=== PATIENT | female | born 1975 | race Caucasian/White ===

== ENCOUNTER 2024-07-29 01:44 | Emergency (ER) | payer OTHER, SELFPAY ==
[2024-07-29 02:05] VITALS: BP 172/108; PULSE 92; TEMP 37; O2SAT 96; BMI 35.3
--- NOTE | 2024-07-29 02:18 | XR_ITS ---
The [address] [address] Patient Name: DEJUAN REYES MRN: [id number] date: 1975 Sex: F Assigned Patient Location: ER Current Patient Location: ED.MAIN Accession/Order Number: [id number] Exam Date: 07/29/2024 02:56 Report Date: 07/29/2024 04:15 At the request of: SHAGGY SPEARS Procedure: XR foot RT min 3V PROCEDURE: XR foot RT min 3V, XR ankle RT min 3V HISTORY: twisted COMPARISON: None. FINDINGS: BONES:Subtle cortical irregularity of lateral malleolus and questionable curvilinear lucency traversing the lateral malleolus suggestive of fracture. Normal articular surfaces and uniform spacing of the ankle joint. Unremarkable foot. SOFT TISSUES:Soft tissue swelling surrounding the ankle. EFFUSION:None visible. OTHER: Negative. XR/XR foot RT min 3V IMPRESSION: 1. Subtle irregularity of the lateral malleolus; nondisplaced fracture versus incomplete ossification of prior growth plate. Nondisplaced fracture is suspected. Electronically authenticated by: KIEL GARCIA Date: 07/29/2024 04:15
--- NOTE | 2024-07-29 02:18 | XR_ITS ---
The [address] [address] Patient Name: DEJUAN REYES MRN: [id number] date: 1975 Sex: F Assigned Patient Location: ER Current Patient Location: ED.MAIN Accession/Order Number: [id number] Exam Date: 07/29/2024 02:56 Report Date: 07/29/2024 04:15 At the request of: SHAGGY SPEARS Procedure: XR ankle RT min 3V PROCEDURE: XR foot RT min 3V, XR ankle RT min 3V HISTORY: twisted COMPARISON: None. FINDINGS: BONES:Subtle cortical irregularity of lateral malleolus and questionable curvilinear lucency traversing the lateral malleolus suggestive of fracture. Normal articular surfaces and uniform spacing of the ankle joint. Unremarkable foot. SOFT TISSUES:Soft tissue swelling surrounding the ankle. EFFUSION:None visible. OTHER: Negative. XR/XR ankle RT min 3V IMPRESSION: 1. Subtle irregularity of the lateral malleolus; nondisplaced fracture versus incomplete ossification of prior growth plate. Nondisplaced fracture is suspected. Electronically authenticated by: KIEL GARCIA Date: 07/29/2024 04:15
--- NOTE | 2024-07-29 02:21 | ED_ITS ---
HPI HPI - Extremity Injury (Lower) General Chief Complaint: Extremity Injury, Lower Stated Complaint: LE INJURY Time Seen by Provider: 07/29/24 02:19 Source: patient Mode of arrival: Wheelchair Limitations: no limitations History of Present Illness HPI Narrative: walking to bath room and twist her right ankle. states she fell down slow motion . Denies other injury. Here because of the ankle injury. Did not hit her head Related Data Home Medications ?Medication ?Instructions ?Recorded ?Confirmed carvedilol 12.5 mg tablet 12.5 mg PO Q12H 07/29/24 07/29/24 cetirizine 10 mg tablet (24Hour 10 mg PO DAILY 07/29/24 07/29/24 Allergy) ergocalciferol (vitamin D2) 1,250 1,250 mcg PO .WEEKLY 07/29/24 07/29/24 mcg (50,000 unit) capsule fluticasone propionate 50 1 spray intranasal DAILY 07/29/24 07/29/24 mcg/actuation nasal spray,suspension lisinopril 20 mg tablet mg 07/29/24 lisinopril 40 mg tablet 40 mg PO DAILY 07/29/24 07/29/24 meloxicam 15 mg tablet 15 mg PO DAILY 07/29/24 07/29/24 rosuvastatin 10 mg tablet 10 mg PO DAILY 07/29/24 07/29/24 Allergies Allergy/AdvReac Type Severity Reaction Status Date / Time ciprofloxacin [From Cipro] AdvReac Nausea Verified 07/29/24 02:10 Opioid HPI Opioid Management Most Recent Pain and Opioid Data: Last Pain Scale 7 07/29/24 02:23 Last ED Pain Assessment 07/29/24 02:23 Review of Systems ROS Status of ROS 10 or more systems reviewed and unremark able except as noted in history and below PFSH PFSH Social History Little interest or pleasure in doing things: not at all Feeling down, depressed, or hopeless: not at all Exam Constitutional Vital Signs, click to edit/add: Last Vital Signs Temp 98.6 F 07/29/24 02:05 Pulse 92 H 07/29/24 02:05 Resp 16 07/29/24 02:05 BP 172/108 H 07/29/24 02:05 Pulse Ox 96 07/29/24 02:05 O2 Del Method Room Air 07/29/24 02:05 Common normals: no apparent distress, average body habitus, oriented x3, no limitations, healthy appearing, alert and well nourished Eye Common normals: PERRL and EOMs intact bilaterally Respiratory Common normals: normal respiratory effort, no retractions, no use of accessory muscles and clear to auscultation bilaterally Cardio Common normals: regular rate, regular rhythm, S1 normal heart sound and S2 normal heart sound Extremity Other: mild swelling right lateral malleolus Neuro Common normals: oriented x3, CN's II-XII intact bilaterally, moves all extremities and no focal motor deficits Psych Appearance: grossly normal Course Vital Signs Vital signs: Vital Signs Temperature 98.6 F 07/29/24 02:05 Pulse Rate 92 H 07/29/24 02:05 Respiratory Rate 16 07/29/24 02:05 Blood Pressure 172/108 H 07/29/24 02:05 Pulse Oximetry 96 07/29/24 02:05 Oxygen Delivery Method Room Air 07/29/24 02:05 Temperature 98.6 F 07/29/24 02:05 Pulse Rate 92 H 07/29/24 02:05 Respiratory Rate 16 07/29/24 02:05 Blood Pressure 172/108 H 07/29/24 02:05 Pulse Oximetry 96 07/29/24 02:05 Oxygen Delivery Method Room Air 07/29/24 02:05 MDM - Extremity Injury (Lower) MDM Narrative Medical decision making narrative: patient presents after fall injury. twisted ankle walking to bathroom. xray with nondisplaced fracture. Patient placed in a splint and discharged home to follow up with orthopedics. she has crutches in her car and knows an orthopedic physician she can followup with Discharge Plan Discharge Chief Complaint: Extremity Injury, Lower Clinical Impression: Ankle fracture Patient Disposition: Home, Self-Care Prescriptions / Home Meds: No Action carvedilol 12.5 mg tablet 12.5 mg PO Q12H ergocalciferol (vitamin D2) 1,250 mcg (50,000 unit) capsule 1,250 mcg PO .WEEKLY fluticasone propionate 50 mcg/actuation spray,suspension 1 spray INTRANASAL DAILY lisinopril 20 mg tablet lisinopril 40 mg tablet 40 mg PO DAILY meloxicam 15 mg tablet 15 mg PO DAILY rosuvastatin 10 mg tablet 10 mg PO DAILY cetirizine [24Hour Allergy] 10 mg tablet 10 mg PO DAILY Print Language: Salvadorean Instructions: Ankle Fracture (ED), Crutch Instructions (ED) Additional Instructions: follow up with orthopedics next week Referrals: Physician,Non-Staff, MD [Primary Care Provider] - 1 week Procedures ED Procedure Instructions Procedures Procedures: right ankle fracture. fiber glass material used to form a posterior ankle splint secured in place with jaren bandage. N/V post procedure WNL
[2024-07-29 04:31] VITALS: BP 148/72; PULSE 69; O2SAT 99
== END 2024-07-29 04:32 | disposition home or self-care (01) ==
PROVIDERS: Emergency Provider Internal Medicine
DX: S82.891A Other fracture of right lower leg, initial encounter for closed fracture (principal); X50.1XXA Overexertion from prolonged static or awkward postures, initial encounter
CPT/HCPCS: 29515; 73610; 73630; 99283

== ENCOUNTER 2024-12-10 22:07 | Emergency (ER) | payer OTHER, SELFPAY ==
[2024-12-10 22:10] VITALS: BP 175/104; PULSE 89; TEMP 36.6; O2SAT 95; BMI 36.6
--- OUTSIDE RECORDS SUMMARY | 2024-12-10 22:12 | XMS_ITS | CCD ---
Author Organization [facility] Care Team Providers Care Work Car Operator Name Role Phone RAJ, DR KELLEY Admitting Unavailable RAJ, DR KELLEY Attending Unavailable SIRI, DR WOOD Primary Care Unavailable RAJ, DR KELLEY Consulting Unavailable SIRI, DR WOOD Primary Care Unavailable DIANA, DR NOEMÍ Vazquez Admitting Unavailable DIANA, DR NOEMÍ Vazquez Attending Unavailable DIANA, DR NOEMÍ Vazquez Consulting Unavailable HAY, DR APPLE Consulting Unavailable AHLAM, BOYD Consulting Unavailable YOLANDA, DANICA Consulting Unavailable MAO, WESLY Consulting Unavailable Sabiha Horner MD Primary Care Provider Javan RIOS, Tori Unavailable Javan RIOS, Tori Unavailable MIRIAM PAULINO I Attending Unavailable TORI EDOUARD Referring Unavailable SABIHA HORNER Primary Care Unavailable JAYCEE VEGAS Attending Unavailable SABIHA HORNER Referring Unavailable SABIHA HORNER Primary Care Unavailable MIRIAM PAULINO I Referring Unavailable SABIHA HORNER Primary Care Unavailable SABIHA HORNER Referring Unavailable SABIHA HORNER Primary Care Unavailable JAYCEE VEGAS Admitting Unavailable JAYCEE VEGAS Attending Unavailable SABIHA HORNER Primary Care Unavailable JAYCEE VEGAS Attending Unavailable JAYCEE VEGAS Referring Unavailable SABIHA HORNER Primary Care Unavailable JAYCEE VEGAS Attending Unavailable JAYCEE VEGAS Referring Unavailable SABIHA HORNER Primary Care Unavailable Sabiha Horner MD Unavailable Johnnie Vyas LPN Unavailable Chemo Severino DO Unavailable TORI EDOUARD Attending Unavailable CHEMO SEVERINO Attending Unavailable CHEMO SEVERINO Referring Unavailable BANDAR, ALEKS Sagastume Attending Unavailab le KAMRONN, TORI Attending Unavailable KAMPFER, TORI Attending Unavailable KAMPFER, TORI Attending Unavailable KAMPFER, TORI Referring Unavailable APLING, KACEY B Attending Unavailable APLING, KACEY B Attending Unavailable APLING, KACEY B Referring Unavailable APLING, KACEY B Attending Unavailable APLING, KACEY B Attending Unavailable APLING, KACEY B Referring Unavailable APLING, KACEY B Attending Unavailable APLING, KACEY B Referring Unavailable APLING, KACEY B Attending Unavailable BLACKSTON, ASHTYN T Attending Unavailable APLING, KACEY B Referring Unavailable PATRICIA, RICCARDO Attending Unavailable APLING, KACEY B Referring Unavailable PATRICIA, RICCARDO Attending Unavailable APLING, KACEY B Referring Unavailable PATRICIA, RICCARDO Attending Unavailable APLING, KACEY B Referring Unavailable PATRICIA, RICCARDO Attending Unavailable APLING, KACEY B Referring Unavailable PATRICIA, RICCARDO Attending Unavailable APLING, KACEY B Referring Unavailable PATRICIA, RICCARDO Attending Unavailable APLING, KACEY B Referring Unavailable PATRICIA, RICCARDO Attending Unavailable APLING, KACEY B Referring Unavailable PATRICIA, RICCARDO Attending Unavailable APLING, KACEY B Referring Unavailable PATRICIA, RICCARDO Attending Unavailable APLING, KACEY B Referring Unavailable APLING, KACEY B Attending Unavailable BLACKSTON, ASHTYN T Attending Unavailable APLING, KACEY B Referring Unavailable Allergies Allergy Classification Reported Allergen(s) Allergy Type Date of Onset Reaction(s) Facility (1 source) Ciprofloxacin Drug Allergy [facility] Repository (20 sources) Ciprofloxacin; Translations: [CIPROFLOXACIN] Drug Allergy 11-06-2021 [facility] Work Phone: Medications Current Medications Medication Drug Class(es) Dates Sig (Normalized) Sig (Original) busPIRone hydrochloride 10 mg oral tablet (8 sources) Start: 09-12-2023 End: 03-10-2024 take 1 tablet by mouth in the morning busPIRone (Buspar) 10 MG tablet Indications: Anxiety Take 1 tablet (10 mg) by mouth in the morning and 1 tablet (10 mg) before bedtime. 180 tablet 1 09/12/2023 03/10/2024 Active carvedilol 12.5 mg oral tablet (20 sources) alpha-Adrenergic Angelique, beta-Adrenergic Angelique Start: 07-30-2024 take 1 tablet by mouth in the morning carvedilol (Coreg) 12.5 MG tablet Indications: Primary hypertension (CMS/HCC) Take 1 tablet (12.5 mg) by mouth in the morning and 1 tablet (12.5 mg) in the evening. Take with meals. 180 tablet 1 07/30/2024 Active Start: 04-10-2024 End: 07-27-2024 take 1 tablet by mouth in the morning carvedilol (Coreg) 12.5 MG tablet Indications: Primary hypertension (CMS/HCC) take 1 tablet by mouth IN THE MORNING and take 1 tablet IN THE EVENING with meals 180 tablet 1 04/10/2024 07/27/2024 Discontinued (Reorder) ergocalciferol 1.25 mg oral capsule (20 sources) Provitamin D2 Compound Start: 08-03-2024 End: 11-01-2025 take 1 capsule by mouth every week ergocalciferol (Vitamin D2) 1.25 MG (49927 UT) capsule Indications: Vitamin D deficiency Take 1 capsule (1.25 mg) by mouth 1 (one) time per week 12 capsule 1 11/01/2024 11/01/2025 Active fluticasone propionate 0.05 mg/actuat metered dose nasal spray (20 sources) Corticosteroid Start: 07-28-2024 End: 01-24-2025 take 1 spray(s) nasal route once daily fluticasone (Flonase) 50 MCG/ACT nasal spray Indications: Allergic rhinitis, unspecified seasonality, unspecified trigger Administer 1 spray into each nostril Daily 48 g 1 07/28/2024 01/24/2025 Active Start: 11-15-2023 End: 05-13-2024 take 1 spray(s) nasal route in the morning fluticasone (Flonase) 50 MCG/ACT nasal spray Indications: Allergic rhinitis, unspecified seasonality, unspecified trigger Administer 1 spray into each nostril in the morning. 48 g 1 11/15/2023 Active hydrOXYzine hydrochloride 25 mg oral tablet (11 sources) Antihistamine Start: 05-29-2024 take 1 tablet by mouth once hydrOXYzine HCl (Atarax) 25 MG tablet Indications: Anxiety Take 1 tablet (25 mg) by mouth every 12 (twelve) hours if needed for anxiety 60 tablet 05/29/2024 Active Start: 11-15-2023 take 1 tablet by mouth once hy drOXYzine HCl (Atarax) 25 MG tablet Indications: Anxiety Take 1 tablet (25 mg) by mouth every 12 (twelve) hours if needed for anxiety 60 tablet 0 11/15/2023 Active lisinopril 40 mg oral tablet (20 sources) Angiotensin Converting Enzyme Inhibitor Start: 07-30-2024 take 1 tablet by mouth in the morning lisinopril 40 MG tablet Indications: Hypertension, unspecified type (CMS/HCC) Take 1 tablet (40 mg) by mouth in the morning. 100 tablet 1 07/30/2024 Active Start: 01-05-2024 End: 07-27-2024 take 1 tablet by mouth in the morning lisinopril 40 MG tablet Indications: Hypertension, unspecified type (CMS/HCC) Take 1 tablet (40 mg) by mouth in the morning. 100 tablet 1 02/01/2024 07/27/2024 Discontinued (Reorder) Start: 01-04-2024 End: 01-06-2024 take 1.5 tablets by mouth in the morning lisinopril 20 MG tablet Indications: Hypertension, unspecified type (CMS/HCC) Take 1.5 tablets (30 mg) by mouth in the morning for 2 days. 3 tablet 0 01/04/2024 01/05/2024 Discontinued Start: 08-22-2023 End: 01-04-2024 take 1 tablet by mouth once daily in the morning lisinopril 20 MG tablet Indications: Hypertension, unspecified type (CMS/HCC) take 1 tablet by mouth every morning 90 tablet 1 08/22/2023 01/04/2024 Discontinued (Reorder) loratadine 10 mg oral tablet (20 sources) take 1 tablet by mouth in the morning loratadine (Claritin) 10 MG tablet Take 10 mg by mouth in the morning. Active meloxicam 15 mg oral tablet (20 sources) Nonsteroidal Anti-inflammatory Drug Start: take 1 tablet by mouth once daily meloxicam (Mobic) 15 MG tablet Indications: Other chronic pain Take 1 tablet (15 mg) by mouth Daily 90 tablet 1 07/13/2024 Active Start: 09-30-2023 End: 12-29-2023 take 1 tablet by mouth at mealtime Meloxicam 15 MG tablet dispersible Indications: Other chronic pain Take 1 tablet by mouth in the morning. Take with meals. 90 tablet 0 09/30/2023 12/29/2023 methylPREDNISolone (6 sources) Corticosteroid Start: 12-28-2023 End: 01-05-2024 methylPREDNISolone (Medrol Dospak) 4 MG tablets Indications: Capsulitis of hand As directed 21 tablet 0 12/28/2023 01/05/2024 Discontinued (Therapy completed) Start: 12-28-2023 methylPREDNISo lone (Medrol Dospak) 4 MG tablets Indications: Capsulitis of hand As directed 21 tablet 0 12/28/2023 Active metoprolol tartrate 25 mg oral tablet (8 sources) beta-Adrenergic Angelique Start: 11-15-2023 End: 11-14-2024 take 1 tablet by mouth in the morning metoprolol tartrate (Lopressor) 25 MG tablet Indications: Hypertension, unspecified type (CMS/HCC) Take 1 tablet (25 mg) by mouth in the morning and 1 tablet (25 mg) before bedtime. 200 tablet 0 11/15/2023 11/14/2024 Active rosuvastatin calcium 10 mg oral tablet (20 sources) HMG-CoA Reductase Inhibitor Start: 07-30-2024 take 1 tablet by mouth in the morning rosuvastatin (Crestor) 10 MG tablet Indications: Mixed hyperlipidemia (CMS/HCC) , ASCVD (arteriosclerotic cardiovascular disease) (CMS/HCC) Take 1 tablet (10 mg) by mouth in the morning. 90 tablet 1 07/30/2024 Active Start: 06-14-2024 End: 07-27-2024 take 1 tablet by mouth once daily in the morning rosuvastatin (Crestor) 10 MG tablet Indications: Mixed hyperlipidemia (CMS/HCC) , ASCVD (arteriosclerotic cardiovascular disease) (CMS/HCC) take 1 tablet by mouth every morning 90 tablet 1 06/14/2024 07/27/2024 Discontinued (Reorder) Start: 12-21-2023 take 1 tablet by malick th once daily in the morning rosuvastatin (Crestor) 10 MG tablet Indications: Mixed hyperlipidemia (CMS/HCC) , ASCVD (arteriosclerotic cardiovascular disease) (CMS/HCC) take 1 tablet by mouth every morning 90 tablet 1 12/21/2023 Active Problems Active Problems Problem Classification Problem Date Documented Da te Episodic/Chronic Abdominal pain (2 sources) Unspecified abdominal pain; Translations: [Unspecified abdominal pain] Onset: 07-11-2024 Episodic Anxiety disorders (20 sources) Anxiety; Translations: [Anxiety disorder, unspecified] Onset: 05-23-2023 05-23-2023 Chronic Coronary atherosclerosis and other heart disease (20 sources) Preinfarction syndrome; Translations: [Unstable angina] Onset: 11-26-2022 05-23-2023 Chronic Disorders of lipid metabolism (20 sources) Hyperlipidemia; Translations: [Hyperlipidemia, unspecified] Onset: 05-23-2023 05-23-2023 Chronic Essential hypertension (20 sources) Essential hypertension; Translations: [Essential (primary) hypertension] Onset: 05-23-2023 12-21-2023 Chronic Fracture of lower limb (20 sources) Closed fracture of lateral malleolus; Translations: [Nondisplaced fracture of lateral malleolus of right fibula, subsequent encounter for closed fracture with routine healing] 09-04-2024 Episodic Genitourinary symptoms and ill-defined conditions (2 sources) Dysuria; Translations: [Dysuria] 12-21-2023 Episodic Nutritional deficiencies (1 source) Vitamin D deficiency; Translations: [Vitamin D deficiency, unspecified] 08-03-2024 Chronic Other connective tissue disease (2 sources) Pain in right hand; Translations: [Pain in right hand] 12-28-2023 Episodic Other connective tissue disease (2 sources) Capsulitis; Translations: [Other enthesopathies, not elsewhere classified] 12-28-2023 Episodic Other nervous system disorders (20 sources) Chronic pain; Translations: [Other chronic pain] Onset: 05-23-2023 05-23-2023 Chronic Other nutritional; endocrine; and metabolic disorders (1 source) Other disorders of glycoprotein metabolism; 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] Onset: 10-12-2021 Chronic Other nutritional; endocrine; and metabolic disorders (1 source) Hypocalcemia; Translations: [HYPOCALCEMIA] Onset: 10-12-2021 Chronic Other nutritional; endocrine; and metabolic disorders (20 sources) Body mass index 30+ - obesity; Translations: [Obesity, unspecified] Onset: 05-23-2023 05-23-2023 Chronic Pneumonia (except that caused by tuberculosis or sexually transmitted disease) (1 source) Pneumonia (except that caused by tuberculosis or sexually transmitted disease); Translations: [PNEUMONIA D/T CORONAVIRUS DIS 2019] Onset: 10-12-2021 Residual codes; unclassified (4 sources) Obstructive sleep apnea (adult) (pediatric); Translations: [OBSTRUCTIVE SLEEP APNEA] Onset: 09-28-2022 Chronic Residual codes; unclassified (20 sources) Obstructive sleep apnea syndrome; Translations: [Obstructive sleep apnea (adult) (pediatric)] Onset: 05-23-2023 05-23-2023 Chronic Respiratory failure; insufficiency; arrest (adult) (1 source) Dependence on supplemental oxygen; Translations: [DEPENDENCE ON SUPPLEMENTAL OXYGEN] Onset: 10-12-2021 Chronic Sprains and strains (8 sources) Sprain of right ankle; Translations: [Sprain of unspecified ligament of right ankle, subsequent encounter] 09-04-2024 Episodic Urinary tract infections (1 source) Urinary tract infections Onset: 06-06-2024 Viral infection (3 sources) COVID-19; Translations: [COVID-19] Onset: 10-04-2021 Past or Other Problems Problem Classification Problem Date Documented Da te Episodic/Chronic Calculus of urinary tract (20 sources) Kidney stone; Translations: [Calculus of kidney] Onset: 05-23-2023 05-23-2023 Episodic Mood disorders (20 sources) Mood disorders Onset: 09-26-2023 09-26-2023 Other aftercare (1 source) terminal gauger (current) use of aspirin; Translations: [GROUP HOME CURRENT USE OF ASPIRIN] Onset: 10-12-2021 Episodic Other gastrointestinal disorders (1 source) Diarrhea, unspecified; Translations: [DIARRHEA UNSPECIFIED] Onset: 10-12-2021 Episodic Other lower respiratory disease (1 source) Hypoxemia; Translations: [HYPOXEMIA] Onset: 10-12-2021 Episodic Other non-traumatic joint disorders (2 sources) Ankle pain; Translations: [Pain in right ankle and joints of right foot] 07-30-2024 Episodic Other screening for suspected conditions (not mental disorders or infectious disease) (20 sources) Other specified abnormal findings of blood chemistry; Translations: [Mammography abnormal] Onset: 10-12-2021 05-23-2023 Episodic Urinary tract infections (3 sources) Urinary tract infection, site not specified; Translations: [Acute cystitis with hematuria] Onset: 04-18-2024 Episodic Results Test Name Value Interpretation Reference Range Facility XR Ankle - right 3 View[facility] 1 12-11-2023 Imaging Result: Xrays AP, LAT and OBL of the right ankle performed on October 10, 2024 demonstrates demonstrates a symmetric ankle mortise. There is callus formation and filling in of the bone of the lateral malleolus. Impression Healing non displaced lateral malleolus fracture Kacey Johns TEXT[employer] SUPERVISOR [facility] [place] XR Ankle - right 3 ViewsOrde red By: Aman Escobar on 10-11-2024 [employer] Work Phone: XR Ankle - right 3 [facility] 1 12-10-2023 Radiology Study observation (narrative) [facility] [place] XR Ankle - right 3 Viewson 1 Imaging Result: Xrays AP, LAT and OBL of the right ankle performed on September 12, 2024 demonstrates a symmetric ankle mortise. There is callus formation and filling in of the bone of the lateral malleolus. Impression Healing non displaced lateral malleolus fracture [facility] [place] XR Ankle - right 3 ViewsOrde red By: Aman Escobar on 09-15-2024 [employer] Work Phone: XR Ankle - right 3 Viewson 1 Radiology Study observation (narrative) [facility] [place] XR Ankle - right 3 View[facility] 0 08-15-2024 Imaging Result: August 15, 2024 x-rays AP lateral and mortise of the right ankle demonstrate a symmetric ankle mortise. There appears to be a healed fracture of the lateral malleolus which was nondisplaced and has a subacute appearance. Impression: Stable appearance of right ankle with evidence of old healed lateral malleolus ankle fracture Kishore Escobar D.O. [facility] [place] Radiology Study observation (narrative) [facility] [place] XR Ankle - right 3 ViewsOrde red By: Aman Escobar on 08-15-2024 [employer] Work Phone: CT UROGRAMon 07-26-[address] UROGRAM STUDY: CT abdomen and pelvis with and without contrast (CT Urogram) CLINICAL HISTORY: Flank pain stone suspected COMPARISON: 02/15/2008 TECHNIQUE: CT of the abdomen and pelvis (CT urogram) was performed prior to and following the uneventful ministration of 125 cc Omnipaque 350 nonionic intravenous contrast utilizing thin section axial imaging with multiphasic contrast injection. Coronal and sagittal reformatted images were generated. Volume rendered 3 -D Maximum intensity projection reconstructions constructed under concurrent physician supervision on a independent workstation and reviewed for purposes of evaluation of the urinary tract and collecting systems. FINDINGS: The lung bases are clear. The liver, spleen, kidneys, adrenal glands, and pancreas are unremarkable. The gallbladder is unremarkable. There are no renal stones or hydronephrosis. There is no renal mass. There is no collecting system or ureter duplication. The ureters follow the usual course to the bladder. The bladder is unremarkable. There is no pelvic mass or free fluid. The gallbladder is unremarkable. Bowel loops are grossly unremarkable. The appendix is normal. There is no hernia. There is disc space narrowing and endplate degenerative change at L5-S1. The visualized lower thoracic and lumbar spine are otherwise unremarkable. IMPRESSION: 1. No renal stones or hydronephrosis. All CT scans at this facility use dose modulation, iterative reconstruction, and/or weight based dosing when appropriate to reduce radiation dose to as low as reasonably achievable. All CT scans at this facility use dose modulation, iterative reconstruction, and/or weight based dosing when appropriate to reduce radiation dose to as low as reasonably achievable. Finalized by Jamar Manrique MD on 07/26/2024 8:21 AM Normal [facility] URINE CULTUREon 06-06-2024 Bacteria identified Cx Nom (U) CULTURE RESULTS 10-50,000 ORGANISMS/mL NORMAL UROGENITAL CHEN Normal [facility] Comment on above: Performed By: #### 6 30-4 #### [facility] ([id number]) [address], [address] [place] [address] [facility] US LOWER EXTREMITY VENO US DUPLEX BILATERALon 04-30-2024 [facility] US LOWER EXTREMITY VENOUS DUPLEX BILATERAL FINDINGS: The deep venous system of both lower extremities exhibits full compressibility and normal flow augmentation. These specifically include the common femoral, superficial femoral, and popliteal veins. No evidence of deep venous thrombosis is present. No cystic or soft tissue mass in the popliteal fossa. IMPRESSION: Normal venous sonogram. No deep venous thrombosis. TRANSCRIBED BY: ELECTRONICALLY SIGNED BY: Norris Arevalo MD Normal Not Available US RETROPERITONEAL COMPLETEo n 04-19-2024 US RETROPERITONEAL COMPLETE US RETROPERITONEAL COMPLETE Clinical history: Frequent UTI Findings: Multiplanar sonography was performed of the kidneys and bladder. Comparison: None. Right kidney 10.3 cm in length Left kidney 11.6 cm in length No hydronephrosis nor perinephric fluid. Cortical echogenicity and thickness are normal. Bladder is compressed. Jets not visualized. Impression: * Unremarkable bilateral renal ultrasound. Finalized by Danica Aaron MD on 04/19/2024 6:04 PM Normal [facility] No Panel Informationon 12-28 Linda Dowling MA 01/02/2024 10:36 AM Splint Application Date/Time: 12/28/2023 5:12 PM Performed by: Linda Dowling MA Authorized by: Chemo Severino DO Consent: Consent obtained: Verbal [place] protocol: Patient identity confirmed: Verbally with patient Procedure details: Location: Finger Finger location: R small finger Cast type: Finger Splint type: Finger Supplies: Aluminum splint Post-procedure details: Procedure completion: Tolerated well, no immediate complications Comments: Alumafoam applied to pts right little finger. [employer] [facility] [facility] XR HAND 3+ VIEWS RIGHTon XR HAND 3+ VIEWS RIGHT EXAMINATION: XR HAND 3+ VIEWS RIGHT, 12/28/2023 4:59 PM CLINICAL HISTORY: right hand pain 5th MCP joint COMPARISON: None HAND FINDINGS: There are no lytic or sclerotic bone lesions. There is no acute fracture or subluxation. Carpal and interphalangeal joints are preserved. The soft tissues are within normal limits. There are no radiopaque foreign bodies. IMPRESSION: There are no acute osseous injuries. ELECTRONICALLY SIGNED BY: Bentley Armendariz MD Normal Not Available XR Hand - right 3 Viewson There are no acute osseous injuries. ELECTRONICALLY SIGNED BY: Bentley Armendariz MD IMAGING EXAMINATION: XR HAND 3+ VIEWS RIGHT, 12/28/2023 4:59 PM CLINICAL HISTORY: right hand pain 5th MCP joint COMPARISON: None HAND FINDINGS: There are no lytic or sclerotic bone lesions. There is no acute fracture or subluxation. Carpal and interphalangeal joints are preserved. The soft tissues are within normal limits. There are no radiopaque foreign bodies. IMAGING Bentley Armendariz MD - 12/28/2023 EXAMINATION: XR HAND 3+ VIEWS RIGHT, 12/28/2023 4:59 PM CLINICAL HISTORY: right hand pain 5th MCP joint COMPARISON: None HAND FINDINGS: There are no lytic or sclerotic bone lesions. There is no acute fracture or subluxation. Carpal and interphalangeal joints are preserved. The soft tissues are within normal limits. There are no radiopaque foreign bodies. IMPRESSION: There are no acute osseous injuries. ELECTRONICALLY SIGNED BY: Bentley Armendariz MD [facility] Radiology Study observation (narrative) [facility] XR Hand - right 3 ViewsOrder ed By: Bentley Armendariz on 12-28-2023 [facility] [employer] Work Phone: Urinalysis macro (dipstick) panel (U)on 12-21-2023 Bilirubin, UA Negative Negative - 4(70) +++ mg/dL [facility] Blood, UA Positive Negative - 50 Royce/mcL [facility] Clarity, UA Clear [facility] re Color, UA Light Yellow [facility] Glucose, UA Negative Negative - 2000(110) ++++ mg/dL [facility] Interpretation and review of laboratory results Normal [facility] Ketones, UA Negative Negative - 160(16) ++++ mg/dL [facility] Leukocytes, UA Negative Negative - 500+++ Karen/mcL [facility] Nitrite, UA Negative Negative - Positive [facility] pH, UA 5.0 5 - 9 [facility] e Protein, UA Trace Negative - 2000(20) ++++ mg/dL [facility] Spec Grav, UA 1.025 1 - 1.03 [facility] Urobilinogen, UA 0.2 0.2 - 12 mg/dL [facility] XR Chest 2 Views*on 10-04-20 22 XR Chest 2 Views* HISTORY: Chest congestion acute upper respiratory infection. FINDINGS: There is minimal haziness along the left cardiac border. The lungs are normally inflated and otherwise clear. The heart size is normal. The bones are unremarkable. IMPRESSION: A small lingular pneumonia is possible in the right clinical setting. Otherwise, this could be atelectasis or simply prominent epicardial fat. Report reported and signed by Logan Hathaway on 10/04/2022 1554 Normal [facility] SCREENING MAMMOGRAM W/CHAYO, BILATERAL*on 01-07-2022 SCREENING MAMMOGRAM W/CHAYO, BILATERAL* CLINICAL HISTORY: Screening Mammogram COMPARISON: Dating back to June 29, 2018, September 21, 2017, September 16, 2017 TECHNIQUE: 2D and 3D Tomosynthesis of the right and left breasts was performed. FINDINGS: Breast composition demonstrates scattered fibroglandular densities. Overall appearance is stable. No suspicious microcalcifications, asymmetry, architectural distortion, or associated features are present. IMPRESSION: BIRADS 1: Negative mammogram Board Certified Radiologist. Accredited by the ACR and FDA. MAMMOGRAPHY IS VERY IMPORTANT TO YOUR HEALTH. THE CURRENT [place] [employer] GUIDELINES RECOMMENDS ANNUAL MAMMOGRAPHY BEGINNING AT AGE 40 THIS FACILITY USES A REMINDER SYSTEM TO ENSURE ALL PATIENTS RECEIVE REMINDER NOTIFICATIONS AT THE APPROPRIATE TIME BASED ON THE RECOMMENDATIONS OF THIS EXAM. Report reported and signed by Norris Arevalo on 01/07/2022 1007 Normal [facility] XR Chest 2 Views*on 11-06-20 21 XR Chest 2 Views* FINDINGS: Comparison made with prior examination of October 22, 2021. Improved aeration with minimal residual basilar interstitial prominence compared to 2 weeks earlier. No new parenchymal consolidation, pulmonary edema or pleural effusion. IMPRESSION: 1. Residual basilar interstitial prominence significant improvement from 2 weeks earlier. Report reported and signed by Norris Arvealo on 11/06/2021 1244 Normal [facility] CBC W MANUAL DIFFon 10-07-20 21 ATYPICAL LYMPH # 0.12 103/ul Normal [facility] Comment on above: Performed By: #### C JEREMIAH #### [facility] [address] [address] [address] Justo Alvarez ATYPICAL LYMPH % 3 % Normal [facility] Comment on above: Performed By: #### C JEREMIAH #### [facility] [address] [address] [address] Justo Alvarez BAND # 0.0 103/ul Normal 0.0-0.3 [facility] Comment on above: Performed By: #### C JEREMIAH #### [facility] [address] [address] [address] Justo Alvarez BAND % 1 % Normal 0-5 [facility] Comment on above: Performed By: #### C BCBARNEY #### [facility] [address] [place] [address] Dr. Justo Alvarez BASOM # 0.00 103/ul Normal 0.00-0.10 [facility] Comment on above: Performed By: #### C BCBARNEY #### [facility] [address] [place] [address] Dr. Justo Alvarez BASOM % 0.0 % Critically low 0.2-2.0 The [facility] Comment on above: Performed By: #### C BCBARNEY #### [facility] [address] [place] [address] Dr. Justo Alvarez BLAST # Normal [facility] Comment on above: Performed By: #### C JEREMIAH #### [facility] [address] [place] [address] Dr. Justo Alvarez BLAST % Normal [facility] Comment on above: Performed By: #### C BCBARNEY #### [facility] [address] [place] [address] Dr. Justo Alvarez CORRECTED WBC Normal 4.0-11.[address] [facility] Comment on above: Performed By: #### C BCBARNEY #### [facility] [address] [place] [address] Dr. Justo Alvarez EOS # 0.00 103/ul Normal 0.00-0.70 [facility] Comment on above: Performed By: #### C BCBARNEY #### [facility] [address] [place] [address] Dr. Justo Alvarez EOS% 0.0 % Critically low 0.9-7.0 [facility] Comment on above: Performed By: #### C BCBARNEY #### [facility] [address] [place] [address] Dr. Justo Alvarez HCT 41.7 % Normal 36.0-48.0 [facility] Comment on above: Performed By: #### C BCBARNEY #### [facility] [address] [place] [address] Dr. Justo Alvarez HGB 13.7 g/dl Normal 12.0-16.0 [facility] Comment on above: Performed By: #### C JEREMIAH #### [facility] [address] [place] [address] Dr. Justo Alvarez LYMPHM # 1.23 103/ul Normal 1.20-3.80 [facility] Comment on above: Performed By: #### C JEREMIAH #### [facility] [address] [place] [address] Dr. Justo Alvarez LYMPHM% 30.0 % Normal 20.5-60.0 [facility] Comment on above: Performed By: #### C JEREMIAH #### [facility] [address] [place] [address] Dr. Justo Alvarez MCH 29.3 pg Normal 26.7-34.0 [facility] Comment on above: Performed By: #### C JEREMIAH #### [facility] [address] [place] [address] Dr. Justo Alvarez MCHC 32.9 g/dl Normal 29.9-35.2 [facility] Comment on above: Performed By: #### Fang DANIELS #### [facility] [address] [place] [address] Dr. Justo Alvarez MCV 89.3 fL Normal 81.0-99.0 [facility] Comment on above: Performed By: #### Fang DANIELS #### [facility] [address] [place] [address] Dr. Justo Alvarez METAMYELOCYTE # Normal [facility] Comment on above: Performed By: #### C JEREMIAH #### [facility] [address] [place] [address] Dr. Justo Alvarez METAMYELOCYTE % Normal [facility] Comment on above: Performed By: #### C JEREMIAH #### [facility] [address] [place] [address] Dr. Justo Alvarez MONOM# 0.45 103/ul Normal 0.30-0.80 [facility] Comment on above: Performed By: #### C JEREMIAH #### [facility] [address] [place] [address] Dr. Justo Alvarez MONOM% 11.0 % Normal 1.7-12.0 [facility] Comment on above: Performed By: #### C JEREMIAH #### [facility] [address] [place] [address] Dr. Justo Alvarez MPV 10.3 fL Normal 9.5-13.5 [facility] Comment on above: Performed By: #### C JEREMIAH #### [facility] [address] [place] [address] Dr. Justo lAvarez MYELOCYTE # Normal [facility] Comment on above: Performed By: #### C JEREMIAH #### [facility] [address] [place] [address] Dr. Justo Alvarez MYELOCYTE % Normal [facility] Comment on above: Performed By: #### C JEREMIAH #### [facility] [address] [place] [address] Dr. Justo Alvarez NRBC Normal [facility] Comment on above: Performed By: #### C JEREMIAH #### [facility] [address] [place] [address] Dr. Justo Alvarez PLT 327 103/ul Normal 150-450 [facility] Comment on above: Performed By: #### C JEREMIAH #### [facility] [address] [place] [address] Dr. Justo Alvarez RBC 4.67 106/ul Normal 4.20-5.40 [facility] Comment on above: Performed By: #### C JEREMIAH #### [facility] [address] [place] [address] Dr. Justo Alvarez RDW 12.4 % Normal 11.0-15.0 [facility] Comment on above: Performed By: #### C JEREMIAH #### [facility] [address] [place] [address] Dr. Justo Alvarez SEG # 2.25 103/ul Normal 1.40-6.50 [facility] Comment on above: Performed By: #### C JEREMIAH #### [facility] [address] [place] [address] Dr. Justo Alvarez SEG % 55.0 % Normal 43.0-75.0 [facility] Comment on above: Performed By: #### C JEREMIAH #### [facility] [address] [place] [address] Dr. Justo Alvarez WBC 4.1 103/ul Normal 4.0-11.0 [facility] Comment on above: Performed By: #### C JEREMIAH #### [facility] [address] [place] [address] Dr. Justo Alvarez PROF 14(COMP METB)on 10-07- 021 Albumin [Mass/Vol] 2.6 g/dL Critically low 3.5-5.0 Th [facility] Comment on above: Performed By: #### C MP #### [facility] [address] [place] [address] Dr. Justo Alvarez Albumin/Globulin [Mass ratio] 0.7 {ratio} Normal [facility] Comment on above: Performed By: #### C MP #### [facility] [address] [place] [address] Dr. Justo Alvarez ALP [Catalytic activity/Vol] 93 U/L Normal 38-126 [facility] Comment on above: Performed By: #### C MP #### [facility] [address] [place] [address] Dr. Justo Alvarez ALT [Catalytic activity/Vol] 156 U/L Critically high 9-52 [facility] Comment on above: Performed By: #### C MP #### [facility] [address] [place] [address] Dr. Justo Alvarez Anion gap [Moles/Vol] 10.3 mmol/L Normal [facility] Comment on above: Performed By: #### C MP #### [facility] [address] [place] [address] Dr. Justo Alvarez AST [Catalytic activity/Vol] 96 U/L Critically high 14-36 [facility] Comment on above: Performed By: #### C MP #### [facility] [address] [place] [address] Dr. Justo Alvarez Bilirubin [Mass/Vol] 0.6 mg/dL Normal 0.2-1.3 [facility] Comment on above: Performed By: #### C MP #### [facility] [address] [place] [address] Dr. Justo Alvarez Calcium [Mass/Vol] 8.1 mg/dL Critically low 8.4-10.2 Th [facility] Comment on above: Performed By: #### C MP #### [facility] [address] [address] [address] Justo Alvarez Chloride [Moles/Vol] 105 mmol/L Normal 98-107 [facility] Comment on above: Performed By: #### C MP #### [facility] [address] [place] [address] Dr. Justo Alvarez CO2 [Moles/Vol] 30.4 mmol/L Critically high 22.0-30.0 [facility] Comment on above: Performed By: #### C MP #### [facility] [address] [place] [address] Dr. Justo Alvarez Creatinine [Mass/Vol] 0.69 mg/dL Normal 0.52-1.04 [facility] Comment on above: Performed By: #### C MP #### [facility] [address] [place] [address] Dr. Justo Alvarez EGFR-AF TUNISIAN >60 Normal >=60 [facility] Comment on above: Performed By: #### C MP #### [facility] [address] [place] [address] Dr. Justo Alvarez EGFR-NON AF TUNISIAN >60 Normal >=60 [facility] Comment on above: Performed By: #### C MP #### [facility] [address] [place] [address] Dr. Justo Alvarez Globulin (S) [Mass/Vol] 3.8 g/dL Normal [facility] Comment on above: Performed By: #### C MP #### [facility] [address] [place] [address] Dr. Justo Alvarez Glucose [Mass/Vol] 121 mg/dL Critically high 74-106 [facility] Comment on above: Performed By: #### C MP #### [facility] [address] [address] [address] Justo Alvarez Potassium [Moles/Vol] 3.7 mmol/L Normal 3.4-5.0 [facility] Comment on above: Performed By: #### C MP #### [facility] [address] [address] [address] Justo Alvarez Protein [Mass/Vol] 6.4 g/dL Normal 6.1-8.2 [facility] Comment on above: Performed By: #### C MP #### [facility] [address] [address] [address] Justo Alvarez Sodium [Moles/Vol] 142 mmol/L Normal 137-145 [facility] Comment on above: Performed By: #### C MP #### [facility] [address] [place] [address] Dr. Justo Alvarez Urea nitrogen [Mass/Vol] 23.0 mg/dL Critically high 7.0-17.0 [facility] Comment on above: Performed By: #### C MP #### [facility] [address] [address] [address] Justo Alvarez Urea nitrogen/Creatinine [Mass ratio] 33.3 mg/mg Normal [facility] Comment on above: Performed By: #### C MP #### [facility] [address] [place] [address] Dr. Justo Alvarez CBC W MANUAL DIFFon 10-06-20 21 ATYPICAL LYMPH # Normal [facility] Comment on above: Performed By: #### C BCMAN #### [facility] [address] [place] [address] Dr. Justo Alvarez ATYPICAL LYMPH % Normal [facility] Comment on above: Performed By: #### C BCMAN #### [facility] [address] [place] [address] Dr. Justo Alvarez BAND # Normal 0.0-0.3 [facility] Comment on above: Performed By: #### C BCMAN #### [facility] [address] [place] [address] Dr. Justo Alvarez BAND % Normal 0-5 [facility] Comment on above: Performed By: #### C BCBARNEY #### [facility] [address] [place] [address] Dr. Justo Alvarez BASOM # 0.00 103/ul Normal 0.00-0.10 [facility] Comment on above: Performed By: #### C BCBARNEY #### [facility] [address] [place] [address] Dr. Justo Alvarez BASOM % 0.0 % Critically low 0.2-2.0 [facility] Comment on above: Performed By: #### C BCBARNEY #### [facility] [address] [place] [address] Dr. Justo Alvarez BLAST # Normal [facility] Comment on above: Performed By: #### C JEREMIAH #### [facility] [address] [place] [address] Dr. Justo Alvarez BLAST % Normal [facility] Comment on above: Performed By: #### C BCBARNEY #### [facility] [address] [place] [address] Dr. Justo Alvarez CORRECTED WBC Normal 4.0-11.[address] [facility] Comment on above: Performed By: #### C BCBARNEY #### [facility] [address] [place] [address] Dr. Justo Alvarez EOS # 0.00 103/ul Normal 0.00-0.70 [facility] Comment on above: Performed By: #### C BCBARNYE #### [facility] [address] [place] [address] Dr. Justo Alvarez EOS% 0.0 % Critically low 0.9-7.0 [facility] Comment on above: Performed By: #### C BCBARNEY #### [facility] [address] [place] [address] Dr. Justo Alvarez HCT 42.2 % Normal 36.0-48.0 [facility] Comment on above: Performed By: #### C BCBARNEY #### [facility] [address] [place] [address] Dr. Justo Alvarez HGB 13.7 g/dl Normal 12.0-16.0 [facility] Comment on above: Performed By: #### C JEREMIAH #### [facility] [address] [place] [address] Dr. Justo Alvarez LYMPHM # 0.97 103/ul Critically low 1.20-3.80 [facility] Comment on above: Performed By: #### C JEREMIAH #### [facility] [address] [place] [address] Dr. Justo Alvarez LYMPHM% 23.0 % Normal 20.5-60.0 [facility] Comment on above: Performed By: #### C JEREMIAH #### [facility] [address] [place] [address] Dr. Justo Alvarez MCH 29.3 pg Normal 26.7-34.0 [facility] Comment on above: Performed By: #### Fang DANIELS #### [facility] [address] [place] [address] Dr. Justo Alvarez MCHC 32.5 g/dl Normal 29.9-35.2 [facility] Comment on above: Performed By: #### Fang DANIELS #### [facility] [address] [place] [address] Dr. Justo Alvarez MCV 90.2 fL Normal 81.0-99.0 [facility] Comment on above: Performed By: #### Fang DANIELS #### [facility] [address] [place] [address] Dr. Justo Alvarez METAMYELOCYTE # Normal [facility] Comment on above: Performed By: #### Fang DANIELS #### [facility] [address] [place] [address] Dr. Justo Alvarez METAMYELOCYTE % Normal [facility] Comment on above: Performed By: #### C JREEMIAH #### [facility] [address] [place] [address] Dr. Justo Alvarez MONOM# 0.50 103/ul Normal 0.30-0.80 [facility] Comment on above: Performed By: #### C JEREMIAH #### [facility] [address] [place] [address] Dr. Justo Alvarez MONOM% 12.0 % Normal 1.7-12.0 [facility] Comment on above: Performed By: #### C JEREMIAH #### [facility] [address] [place] [address] Dr. Justo Alvarez MPV 10.2 fL Normal 9.5-13.5 [facility] Comment on above: Performed By: #### C JEREMIAH #### [facility] [address] [place] [address] Dr. Justo Alvarez MYELOCYTE # Normal [facility] Comment on above: Performed By: #### C JEREMIAH #### [facility] [address] [place] [address] Dr. Justo Alvarez MYELOCYTE % Normal [facility] Comment on above: Performed By: #### C JEREMIAH #### [facility] [address] [place] [address] Dr. Justo Alvarez NRBC Normal [facility] Comment on above: Performed By: #### C JEREMIAH #### [facility] [address] [place] [address] Dr. Justo Alvarez PLT 286 103/ul Normal 150-450 [facility] Comment on above: Performed By: #### C JEREMIAH #### [facility] [address] [place] [address] Dr. Justo Alvarez RBC 4.68 106/ul Normal 4.20-5.40 [facility] Comment on above: Performed By: #### C JEREMIAH #### [facility] [address] [place] [address] Dr. Justo Alvarez RDW 12.5 % Normal 11.0-15.0 [facility] Comment on above: Performed By: #### C JEREMIAH #### [facility] [address] [place] [address] Dr. Justo Alvarez SEG # 2.73 103/ul Normal 1.40-6.50 [facility] Comment on above: Performed By: #### C JEREMIAH #### [facility] [address] [place] [address] Dr. Justo Alvarez SEG % 65.0 % Normal 43.0-75.0 [facility] Comment on above: Performed By: #### C JEREMIAH #### [facility] [address] [place] [address] Dr. Justo Alvarez WBC 4.2 103/ul Normal 4.0-11.0 [facility] Comment on above: Performed By: #### C JEREMIAH #### [facility] [address] [place] [address] Dr. Justo Alvarez PROF 14(COMP METB)on 10-06- 021 Albumin [Mass/Vol] 2.6 g/dL Critically low 3.5-5.0 Th e [facility] Comment on above: Performed By: #### C MP #### [facility] [address] [place] [address] Dr. Justo Alvarez Albumin/Globulin [Mass ratio] 0.6 {ratio} Normal [facility] Comment on above: Performed By: #### C MP #### [facility] [address] [place] [address] Dr. Justo Alvarez ALP [Catalytic activity/Vol] 101 U/L Normal 38-126 [facility] Comment on above: Performed By: #### C MP #### [facility] [address] [place] [address] Dr. Justo Alvarez ALT [Catalytic activity/Vol] 80 U/L Critically high 9-52 [facility] Comment on above: Performed By: #### C MP #### [facility] [address] [place] [address] Dr. Justo Alvarez Anion gap [Moles/Vol] 8.6 mmol/L Normal [facility] Comment on above: Performed By: #### C MP #### [facility] [address] [place] [address] Dr. Justo Alvarez AST [Catalytic activity/Vol] 54 U/L Critically high 14-36 [facility] Comment on above: Performed By: #### C MP #### [facility] [address] [place] [address] Dr. Justo Alvarez Bilirubin [Mass/Vol] 0.5 mg/dL Normal 0.2-1.3 [facility] Comment on above: Performed By: #### C MP #### [facility] [address] [address] [address] Justo Alvarez Calcium [Mass/Vol] 8.6 mg/dL Normal 8.4-10.2 [facility] Comment on above: Performed By: #### C MP #### [facility] [address] [address] [address] Justo Alvarez Chloride [Moles/Vol] 105 mmol/L Normal 98-107 [facility] Comment on above: Performed By: #### C MP #### [facility] [address] [address] [address] Justo Alvarez CO2 [Moles/Vol] 32.4 mmol/L Critically high 22.0-30.0 [facility] Comment on above: Performed By: #### C MP #### [facility] [address] [address] [address] Justo Alvarez Creatinine [Mass/Vol] 0.79 mg/dL Normal 0.52-1.04 [facility] Comment on above: Performed By: #### C MP #### [facility] [address] [place] [address] Dr. Justo Alvarez EGFR-AF TUNISIAN >60 Normal >=60 [facility] Comment on above: Performed By: #### C MP #### [facility] [address] [address] [address] Justo Alvarez EGFR-NON AF TUNISIAN >60 Normal >=60 [facility] Comment on above: Performed By: #### C MP #### [facility] [address] [address] [address] Justo Alvarez Globulin (S) [Mass/Vol] 4.0 g/dL Normal [facility] Comment on above: Performed By: #### C MP #### [facility] [address] [address] [address] Justo Alvarez Glucose [Mass/Vol] 120 mg/dL Critically high 74-106 [facility] Comment on above: Performed By: #### C MP #### [facility] [address] [address] [address] Justo Alvarez Potassium [Moles/Vol] 4.0 mmol/L Normal 3.4-5.0 [facility] Comment on above: Performed By: #### C MP #### [facility] [address] [address] [address] Justo Alvarez Protein [Mass/Vol] 6.6 g/dL Normal 6.1-8.2 [facility] Comment on above: Performed By: #### C MP #### [facility] [address] [address] [address] Justo Alvarez Sodium [Moles/Vol] 142 mmol/L Normal 137-145 [facility] Comment on above: Performed By: #### C MP #### [facility] [address] [address] [address] Justo Alvarez Urea nitrogen [Mass/Vol] 24.0 mg/dL Critically high 7.0-17.0 [facility] Comment on above: Performed By: #### C MP #### [facility] [address] [address] [address] Justo Alvarez Urea nitrogen/Creatinine [Mass ratio] 30.4 mg/mg Normal [facility] Comment on above: Performed By: #### C MP #### [facility] [address] [address] [address] Justo Alvarez CBC AUTO DIFFon 10-05-2021 BASO # 0.0 103/ul Normal 0.0-0.1 [facility] Comment on above: Performed By: #### C BC #### [facility] [address] [address] [address] Justo Alvarez Basophils/100 WBC (Bld) 0.1 % Critically low 0.2-2.0 [facility] Comment on above: Performed By: #### C BC #### [facility] [address] [address] [address] Justo Alvarez EO # 0.0 103/ul Normal 0.0-0.7 [facility] Comment on above: Performed By: #### C BC #### [facility] [address] [place] [address] Dr. Justo Alvarez Eosinophils/100 WBC (Bld) 0.0 % Critically low 0.9-7.0 [facility] Comment on above: Performed By: #### C BC #### [facility] [address] [place] [address] Dr. Justo Alvarez Erythrocyte distribution width (RBC) [Ratio] 12.8 % Normal 11.0-15.0 [facility] Comment on above: Performed By: #### C BC #### [facility] [address] [place] [address] Dr. Justo Alvarez Hematocrit (Bld) [Volume fraction] 42.2 % Normal 36.0-48.0 [facility] Comment on above: Performed By: #### C BC #### [facility] [address] [place] [address] Dr. Justo Alvarez Hemoglobin (Bld) [Mass/Vol] 13.6 g/dL Normal 12.0-16.0 [facility] Comment on above: Performed By: #### C BC #### [facility] [address] [place] [address] Dr. Justo Alvarez IG # 0.04 10e3/ul Critically high 0.00-0.03 [facility] Comment on above: Performed By: #### C BC #### [facility] [address] [place] [address] Dr. Justo Alvarez IG % 0.5 % Normal 0.0-0.5 [facility] Comment on above: Performed By: #### C BC #### [facility] [address] [place] [address] Dr. Justo Alvarez LYMPH # 1.3 103/ul Normal 1.2-3.8 [facility] Comment on above: Performed By: #### C BC #### [facility] [address] [place] [address] Dr. Justo Alvarez Lymphocytes/100 WBC (Bld) 15.9 % Critically low 20.5-60.0 [facility] Comment on above: Performed By: #### C BC #### [facility] [address] [place] [address] Dr. Justo Alvarez MANUAL DIFF REQ NO Normal [facility] Comment on above: Performed By: #### C BC #### [facility] [address] [place] [address] Dr. Justo Alvarez MCH (RBC) [Entitic mass] 29.5 pg Normal 26.7-34.0 [facility] Comment on above: Performed By: #### C BC #### [facility] [address] [place] [address] Dr. Justo Alvarez MCHC (RBC) [Mass/Vol] 32.2 g/dL Normal 29.9-35.2 [facility] Comment on above: Performed By: #### C BC #### [facility] [address] [place] [address] Dr. Justo Alvarez MCV (RBC) [Entitic vol] 91.5 fL Normal 81.0-99.0 [facility] Comment on above: Performed By: #### C BC #### [facility] [address] [place] [address] Dr. Justo Alvarez MONO # 0.6 103/ul Normal 0.3-0.8 [facility] Comment on above: Performed By: #### C BC #### [facility] [address] [place] [address] Dr. Justo Alvarez Monocytes/100 WBC (Bld) 6.6 % Normal 1.7-12.0 [facility] Comment on above: Performed By: #### C BC #### [facility] [address] [place] [address] Dr. Justo Alvarez NEUT # 6.5 103/ul Normal 1.4-6.5 [facility] Comment on above: Performed By: #### C BC #### [facility] [address] [place] [address] Dr. Justo Alvarez Neutrophils/100 WBC (Bld) 76.9 % Critically high 43.0-75.0 [facility] Comment on above: Performed By: #### C BC #### [facility] [address] [place] [address] Dr. Justo Alvarez Platelet mean volume (Bld) [Entitic vol] 10.6 fL Normal 9.5-13.5 [facility] Comment on above: Performed By: #### C BC #### [facility] [address] [place] [address] Dr. Justo Alvarez PLT 256 103/ul Normal 150-450 [facility] Comment on above: Performed By: #### C BC #### [facility] [address] [place] [address] Dr. Justo Alvarez RBC 4.61 106/ul Normal 4.20-5.40 [facility] Comment on above: Performed By: #### C BC #### [facility] [address] [place] [address] Dr. Justo Alvarez WBC 8.4 103/ul Normal 4.0-11.0 [facility] Comment on above: Performed By: #### C BC #### [facility] [address] [place] [address] Dr. Justo Alvarez PROF 14(COMP METB)on 021 Albumin [Mass/Vol] 2.6 g/dL Critically low 3.5-5.0 [facility] Comment on above: Performed By: #### C MP #### [facility] [address] [place] [address] Dr. Justo Alvarez Albumin/Globulin [Mass ratio] 0.7 {ratio} Normal [facility] Comment on above: Performed By: #### C MP #### [facility] [address] [place] [address] Dr. Justo Alvarez ALP [Catalytic activity/Vol] 107 U/L Normal 38-126 [facility] Comment on above: Performed By: #### C MP #### [facility] [address] [place] [address] Dr. Justo Alvarez ALT [Catalytic activity/Vol] 56 U/L Critically high 9-52 [facility] Comment on above: Performed By: #### C MP #### [facility] [address] [address] [address] Justo Alvarez Anion gap [Moles/Vol] 10.7 mmol/L Normal [facility] Comment on above: Performed By: #### C MP #### [facility] [address] [place] [address] Dr. Justo Alvarez AST [Catalytic activity/Vol] 42 U/L Critically high 14-36 [facility] Comment on above: Performed By: #### C MP #### [facility] [address] [place] [address] Dr. Justo Alvarez Bilirubin [Mass/Vol] 0.4 mg/dL Normal 0.2-1.3 [facility] Comment on above: Performed By: #### C MP #### [facility] [address] [place] [address] Dr. Justo Alvarez Calcium [Mass/Vol] 8.5 mg/dL Normal 8.4-10.2 [facility] Comment on above: Performed By: #### C MP #### [facility] [address] [place] [address] Dr. Justo Alvarez Chloride [Moles/Vol] 106 mmol/L Normal 98-107 [facility] Comment on above: Performed By: #### C MP #### [facility] [address] [place] [address] Dr. Justo Alvarez CO2 [Moles/Vol] 29.2 mmol/L Normal 22.0-30.0 [facility] Comment on above: Performed By: #### C MP #### [facility] [address] [place] [address] Dr. Justo Alvarez Creatinine [Mass/Vol] 0.82 mg/dL Normal 0.52-1.04 [facility] Comment on above: Performed By: #### C MP #### [facility] [address] [place] [address] Dr. Justo Alvarez EGFR-AF TUNISIAN >60 Normal >=60 [facility] Comment on above: Performed By: #### C MP #### [facility] [address] [place] [address] Dr. Justo Alvarez EGFR-NON AF TUNISIAN >60 Normal >=60 [facility] Comment on above: Performed By: #### C MP #### [facility] [address] [place] [address] Dr. Justo Alvarez Globulin (S) [Mass/Vol] 3.9 g/dL Normal [facility] Comment on above: Performed By: #### C MP #### [facility] [address] [address] [address] Justo Alvarez Glucose [Mass/Vol] 123 mg/dL Critically high 74-106 [facility] Comment on above: Performed By: #### C MP #### [facility] [address] [address] [address] Justo Alvarez Potassium [Moles/Vol] 3.9 mmol/L Normal 3.4-5.0 [facility] Comment on above: Performed By: #### C MP #### [facility] [address] [place] [address] Dr. Justo Alvarez Protein [Mass/Vol] 6.5 g/dL Normal 6.1-8.2 [facility] Comment on above: Performed By: #### C MP #### [facility] [address] [place] [address] Dr. Justo Alvarez Sodium [Moles/Vol] 142 mmol/L Normal 137-145 [facility] Comment on above: Performed By: #### C MP #### [facility] [address] [place] [address] Dr. Justo Alvarez Urea nitrogen [Mass/Vol] 19.0 mg/dL Critically high 7.0-17.0 [facility] Comment on above: Performed By: #### C MP #### [facility] [address] [place] [address] Dr. Justo Alvarez Urea nitrogen/Creatinine [Mass ratio] 23.2 mg/mg Normal [facility] Comment on above: Performed By: #### C MP #### [facility] [address] [place] [address] Dr. Justo Alvarez CBC AUTO DIFFon 10-04-2021 BASO # 0.0 103/ul Normal 0.0-0.1 [facility] Comment on above: Performed By: #### C BC #### [facility] [address] [place] [address] Dr. Justo Alvarez Basophils/100 WBC (Bld) 0.3 % Normal 0.2-2.0 [facility] Comment on above: Performed By: #### C BC #### [facility] [address] [place] [address] Dr. Justo Alvarez EO # 0.0 103/ul Normal 0.0-0.7 [facility] Comment on above: Performed By: #### C BC #### [facility] [address] [place] [address] Dr. Justo Alvarez Eosinophils/100 WBC (Bld) 0.0 % Critically low 0.9-7.0 [facility] Comment on above: Performed By: #### C BC #### [facility] [address] [place] [address] Dr. Justo Alvarez Erythrocyte distribution width (RBC) [Ratio] 12.7 % Normal 11.0-15.0 [facility] Comment on above: Performed By: #### C BC #### [facility] [address] [place] [address] Dr. Justo Alvarez Hematocrit (Bld) [Volume fraction] 42.6 % Normal 36.0-48.0 [facility] Comment on above: Performed By: #### C BC #### [facility] [address] [place] [address] Dr. Justo Alvarez Hemoglobin (Bld) [Mass/Vol] 14.0 g/dL Normal 12.0-16.0 [facility] Comment on above: Performed By: #### C BC #### [facility] [address] [place] [address] Dr. Justo Alvarez IG # 0.02 10e3/ul Normal 0.00-0.03 [facility] Comment on above: Performed By: #### C BC #### [facility] [address] [place] [address] Dr. Justo Avlarez IG % 0.7 % Critically high 0.0-0.5 [facility] Comment on above: Performed By: #### C BC #### [facility] [address] [place] [address] Dr. Justo Alvarez LYMPH # 0.9 103/ul Critically low 1.2-3.8 [facility] Comment on above: Performed By: #### C BC #### [facility] [address] [place] [address] Dr. Justo Alvarez Lymphocytes/100 WBC (Bld) 27.7 % Normal 20.5-60.0 [facility] Comment on above: Performed By: #### C BC #### [facility] [address] [place] [address] Dr. Justo Alvarez MANUAL DIFF REQ NO Normal [facility] Comment on above: Performed By: #### C BC #### [facility] [address] [place] [address] Dr. Justo Alvarez MCH (RBC) [Entitic mass] 29.9 pg Normal 26.7-34.0 [facility] Comment on above: Performed By: #### C BC #### [facility] [address] [place] [address] Dr. Justo Alvarez MCHC (RBC) [Mass/Vol] 32.9 g/dL Normal 29.9-35.2 [facility] Comment on above: Performed By: #### C BC #### [facility] [address] [place] [address] Dr. Justo Alvarez MCV (RBC) [Entitic vol] 90.8 fL Normal 81.0-99.0 [facility] Comment on above: Performed By: #### C BC #### [facility] [address] [place] [address] Dr. Justo Alvarez MONO # 0.2 103/ul Critically low 0.3-0.8 [facility] Comment on above: Performed By: #### C BC #### [facility] [address] [place] [address] Dr. Justo Alvarez Monocytes/100 WBC (Bld) 7.8 % Normal 1.7-12.0 [facility] Comment on above: Performed By: #### C BC #### [facility] [address] [address] [address] Justo Alvarez NEUT # 2.0 103/ul Normal 1.4-6.5 [facility] Comment on above: Performed By: #### C BC #### [facility] [address] [address] [address] Justo Alvarez Neutrophils/100 WBC (Bld) 63.5 % Normal 43.0-75.0 [facility] Comment on above: Performed By: #### C BC #### [facility] [address] [address] [address] Justo Alvarez Platelet mean volume (Bld) [Entitic vol] 10.3 fL Normal 9.5-13.5 [facility] Comment on above: Performed By: #### C BC #### [facility] [address] [place] [address] Dr. Justo Alvarez PLT 194 103/ul Normal 150-450 [facility] Comment on above: Performed By: #### C BC #### [facility] [address] [address] [address] Justo Alvarez RBC 4.69 106/ul Normal 4.20-5.40 [facility] Comment on above: Performed By: #### C BC #### [facility] [address] [place] [address] Dr. Justo Alvarez WBC 3.1 103/ul Critically low 4.0-11.0 [facility] Comment on above: Performed By: #### C BC #### [facility] [address] [place] [address] Dr. Justo Alvarez PROF 14(COMP METB)on 021 Albumin [Mass/Vol] 2.5 g/dL Critically low 3.5-5.0 [facility] Comment on above: Performed By: #### C MP #### [facility] [address] [place] [address] Dr. Justo Alvarez Albumin/Globulin [Mass ratio] 0.6 {ratio} Normal [facility] Comment on above: Performed By: #### C MP #### [facility] [address] [address] [address] Justo Alvarez ALP [Catalytic activity/Vol] 118 U/L Normal 38-126 [facility] Comment on above: Performed By: #### C MP #### [facility] [address] [address] [address] Justo Alvarez ALT [Catalytic activity/Vol] 53 U/L Critically high 9-52 [facility] Comment on above: Performed By: #### C MP #### [facility] [address] [address] [address] Justo Alvarez Anion gap [Moles/Vol] 11.6 mmol/L Normal [facility] Comment on above: Performed By: #### C MP #### [facility] [address] [place] [address] Dr. Justo Alvarez AST [Catalytic activity/Vol] 50 U/L Critically high 14-36 [facility] Comment on above: Performed By: #### C MP #### [facility] [address] [address] [address] Justo Alvarez Bilirubin [Mass/Vol] 0.3 mg/dL Normal 0.2-1.3 [facility] Comment on above: Performed By: #### C MP #### [facility] [address] [place] [address] Dr. Justo Alvarez Calcium [Mass/Vol] 8.0 mg/dL Critically low 8.4-10.2 [facility] Comment on above: Performed By: #### C MP #### [facility] [address] [place] [address] Dr. Justo Alvarez Chloride [Moles/Vol] 105 mmol/L Normal 98-107 [facility] Comment on above: Performed By: #### C MP #### [facility] [address] [place] [address] Dr. Justo Alvarez CO2 [Moles/Vol] 30.5 mmol/L Critically high 22.0-30.0 [facility] Comment on above: Performed By: #### C MP #### [facility] [address] [address] [address] Justo Alvarez Creatinine [Mass/Vol] 0.72 mg/dL Normal 0.52-1.04 [facility] Comment on above: Performed By: #### C MP #### [facility] [address] [address] [address] Justo Alvarez EGFR-AF TUNISIAN >60 Normal >=60 [facility] Comment on above: Performed By: #### C MP #### [facility] [address] [address] [address] Justo Alvarez EGFR-NON AF TUNISIAN >60 Normal >=60 [facility] Comment on above: Performed By: #### C MP #### [facility] [address] [place] [address] Dr. Justo Alvarez Globulin (S) [Mass/Vol] 4.0 g/dL Normal [facility] Comment on above: Performed By: #### C MP #### [facility] [address] [place] [address] Dr. Justo Alvarez Glucose [Mass/Vol] 159 mg/dL Critically high 74-106 [facility] Comment on above: Performed By: #### C MP #### [facility] [address] [place] [address] Dr. Justo Alvarez Potassium [Moles/Vol] 4.1 mmol/L Normal 3.4-5.0 [facility] Comment on above: Performed By: #### C MP #### [facility] [address] [address] [address] Justo Alvarez Protein [Mass/Vol] 6.5 g/dL Normal 6.1-8.2 [facility] Comment on above: Performed By: #### C MP #### [facility] [address] [place] [address] Dr. Justo Alvarez Sodium [Moles/Vol] 143 mmol/L Normal 137-145 [facility] Comment on above: Performed By: #### C MP #### [facility] [address] [place] [address] Dr. Justo Alvarez Urea nitrogen [Mass/Vol] 15.0 mg/dL Normal 7.0-17.0 [facility] Comment on above: Performed By: #### C MP #### [facility] [address] [place] [address] [id number] [address] Justo Alvarez Urea nitrogen/Creatinine [Mass ratio] 20.8 mg/mg Normal [facility] Comment on above: Performed By: #### C MP #### [facility] [address] [place], [place] [address] Dr. Justo Alvarez XR CHEST 2 Von 10-04-2021 XR CHEST 2 V EXAMINATION: XR CHEST 2 V, , 10/04/2021 2:09 PM EST INDICATION: SHORTNESS OF BREATH HISTORY: Ordering Provider Reason for Exam: Technologist Note: Additional: COMPARISON: Chest x-ray and chest CT of 10/03/2021. TECHNIQUE: Chest x-ray: Two views. FINDINGS: Low lung volumes are seen, likely due to poor inspiratory effort. Bilateral patchy infiltrates are seen, stable to possibly slightly more dense compared with prior examination. No significant pleural effusion or obvious pneumothorax is seen. Heart is normal in size. Bony thorax is unremarkable. IMPRESSION: Bilateral multifocal patchy infiltrates. Electronically authenticated by: BOYD LAZCANO Date: 2021-10-04 15:59 Normal [facility] Urine Cultureon 07-25-2021 Bacteria identified Cx Nom (U) Reason for Exam Dysuria Urine Reason for Exam: Dysuria : Urine ORGANISM: Escherichia coli (O:ESCCOL) [place] Count 100,000 Aerobic GOLDEN Charge (NUC86) ----- SUSCEPTIBILITY ---- ORGANISM: O:ESCCOL ANTIBIOTIC INTERPRETATION GOLDEN Amikacin S <16 Ampicillin S <8 Ampicillin/Sulbactam S <8/4 Aztreonam S <4 Cefazolin S <2 Cefepime S <2 Ceftazidime S <1 Ceftazidime/Avibacta m S <8 Ceftriaxone S <1 Ciprofloxacin S <1 Ertapenem S <0.5 Gentamicin S <4 Levofloxacin S <2 Meropenem S <1 Nitrofurantoin S <32 Piperacillin/Tazobac cardona S <16 Tetracycline S <4 Tigecycline S <2 Tobramycin S <4 Trimethoprim/Sulfame thoxazole S <2/38 S = SUSCEPTIBLE I = INTERMEDIATE R = RESISTANT BLANK = DATA NOT AVAILABLE, OR DRUG NOT ADVISABLE OR TESTED R* = RESISTANCE DUE TO EXTENDED SPECTRUM BETA-LACTAMASES ESBL = EXTENDED SPECTRUM BETA-LACTAMASE TFG = THYMIDINE-DEPENDENT STRAIN MARIA GUADALUPE = BETA-LACTAMASE POSITIVE IB = INDUCIBLE BETA-LACTAMASE. APPEARS IN PLACE OF 'S' WITH SPECIES KNOWN TO POSSESS INDUCIBLE BETA-LACTAMASES. POTENTIALLY THEY MAY BECOME RESISTANT TO ALL B-LACTAM DRUGS. PERFORMED BY: [place] [address] PATHOLOGIST [employer] [place] QIU M.D. [facility] Comment on above: Performed By: #### C UU #### [address] Vital Signs Date Time Vital Sign Value Performing Clinician Bre ordonez 07-30-2024 12:25-0400 Body height 167.6 cm Kacey Johns [employer]IDE DEVELOPER Work Phone: [facility] 07-30-2024 12:25-0400 Body mass index (BMI) [Ratio] 35.35 kg/m2 Kacey Johns SLIDE DEVELOPER Work Phone: [facility] 07-30-2024 12:25-0400 Body weight 99.34 kg Kacey Johns SLIDE DEVELOPER Work Phone: [facility] 01-05-2024 08:10-0500 Body height 167.6 cm Aleks Haalva SLIDE DEVELOPER Work Phone: [facility] 01-05-2024 08:10-0500 Body mass index (BMI) [Ratio] 35.38 kg/m2 Aleks Best SLIDE DEVELOPER Work Phone: [facility] 01-05-2024 08:10-0500 Body temperature 96.6 [degF] Aleks Best SLIDE DEVELOPER Work Phone: [facility] 01-05-2024 08:10-0500 Body weight 99.43 kg Aleks Best SLIDE DEVELOPER Work Phone: [facility] 01-05-2024 08:10-0500 Diastolic blood pressure 90 mm[Hg] Aleks Best SLIDE DEVELOPER Work Phone: [facility] 01-05-2024 08:10-0500 Heart rate 83 /min Aleks Best SLIDE DEVELOPER Work Phone: [facility] 01-05-2024 08:10-0500 SaO2% (BldA) [Mass fraction] 95 % Aleks Best SLIDE DEVELOPER Work Phone: [facility] 01-05-2024 08:10-0500 Systolic blood pressure 142 mm[Hg] Aleks Best SLIDE DEVELOPER Work Phone: [facility] 12-28-2023 16:39-0500 Body mass index (BMI) [Ratio] 35.19 kg/m2 Chemo Severino DO Work Phone: [facility] 12-28-2023 16:39-0500 Body temperature 97.5 [degF] Chemo Severino DO Work Phone: [facility] 12-28-2023 16:39-0500 Body weight 98.88 kg Chemo Severino DO Work Phone: [facility] 12-28-2023 16:39-0500 Diastolic blood pressure 98 mm[Hg] Chemo Severino DO Work Phone: [facility] 12-28-2023 16:39-0500 Heart rate 91 /min Chemo Severino DO Work Phone: [facility] 12-28-2023 16:39-0500 SaO2% (BldA) [Mass fraction] 99 % Chemo Severino DO Work Phone: [facility] 12-28-2023 16:39-0500 Systolic blood pressure 128 mm[Hg] Chemo Poseychandrakant DO Work Phone: [facility] 12-21-2023 16:21-0500 Body height 167.6 cm Tori Javan SLIDE DEVELOPER Work Phone: [facility] 12-21-2023 16:21-0500 Body mass index (BMI) [Ratio] 35.22 kg/m2 Tori Edouard SLIDE DEVELOPER Work Phone: [facility] 12-21-2023 16:21-0500 Body weight 98.97 kg Tori Edouard SLIDE DEVELOPER Work Phone: [facility] 12-21-2023 16:21-0500 Diastolic blood pressure 90 mm[Hg] Tori Edouard SLIDE DEVELOPER Work Phone: [facility] 12-21-2023 16:21-0500 Heart rate 101 /min Tori Edouard SLIDE DEVELOPER Work Phone: [facility] 12-21-2023 16:21-0500 SaO2% (BldA) [Mass fraction] 97 % Tori Edouard SLIDE DEVELOPER Work Phone: [facility] 12-21-2023 16:21-0500 Systolic blood pressure 140 mm[Hg] Tori Edouard SLIDE DEVELOPER Work Phone: [facility] Healthcare Encounters Encounter Date Encounter Type Care Provider Facility Start: 12-06-2024 End: 12-06-2024 Bamboo flowsphillip Randall PT Work Phone: [facility] Start: 12-06-2024 End: 12-06-2024 Bamboo flowsheet Ashtyn Randall PT Work Phone: [facility] Start: 12-06-2024 End: 12-06-2024 ambulatory Ashtyn Randall PT Work Phone: [facility] Comment on above: Closed nondisplaced fracture of lateral malleolus of right fibula with routine healing (Primary Dx) Start: 12-03-2024 End: 12-03-2024 Bamboo flowsphillip Johns SLIDE DEVELOPER Work Phone: [facility] Start: 12-03-2024 End: 12-03-2024 Bamboo flowsheet Kacey Johns SLIDE DEVELOPER Work Phone: [facility] Start: 12-03-2024 End: 12-03-2024 ambulatory KACEY JOHNS Not Available Start: 12-03-2024 End: 12-03-2024 Office outpatient visit 10 minutes Kacey Johns SLIDE DEVELOPER Work Phone: [facility] Comment on above: Sprain of ligament o f right ankle, subsequent encounter (Primary Dx); Closed nondisplaced fracture of lateral malleolus of right fibula with routine healing Start: 11-30-2024 End: 11-30-2024 Bamboo flowsheet Riccardo Gomez [employer] OPERATOR [facility] Start: 11-30-2024 End: 11-30-2024 Bamboo flowsheet Riccardo Gomez [employer] VESSEL OPERATOR [facility] Start: 11-30-2024 End: 11-30-2024 ambulatory Riccardo Gomez [employer] VESSEL OPERATOR [facility] Comment on above: Closed nondisplaced fracture of lateral malleolus of right fibula with routine healing (Primary Dx) Start: 11-28-2024 End: 11-28-2024 Bamboo flowsheet Riccardo Gomez [employer]ING VESSEL OPERATOR [facility] Start: 11-28-2024 End: 11-28-2024 Bamboo flowsheet Riccardo Gomez [employer]ING VESSEL OPERATOR [facility] Start: 11-28-2024 End: 11-28-2024 ambulatory Riccardo Gomez [employer] VESSEL OPERATOR [facility] Comment on above: Closed nondisplaced fracture of lateral malleolus of right fibula with routine healing (Primary Dx) Start: 11-19-2024 End: 11-19-2024 Bamboo flowsheet Riccardo Gomez [employer] VESSEL OPERATOR [facility] Start: 11-19-2024 End: 11-19-2024 Bamboo flowsheet Riccardo Gomez [employer] VESSEL OPERATOR [facility] Start: 11-19-2024 End: 11-19-2024 ambulatory Riccardo Gomez [employer] VESSEL OPERATOR [facility] Comment on above: Closed nondisplaced fracture of lateral malleolus of right fibula with routine healing (Primary Dx) Start: 11-12-2024 End: 11-12-2024 Bamboo flowsheet Riccardo Patricia [employer]ING VESSEL OPERATOR [facility] Start: 11-12-2024 End: 11-12-2024 Bamboo flowsheet Riccardo Gomez [employer]ING VESSEL OPERATOR [facility] Start: 11-12-2024 End: 11-12-2024 ambulatory Riccardo Gomez [employer] VESSEL OPERATOR [facility] Comment on above: Closed nondisplaced fracture of lateral malleolus of right fibula with routine healing (Primary Dx) Start: 11-09-2024 End: 11-09-2024 Bamboo flowsheet Riccardo Gomez [employer] VESSEL OPERATOR [facility] Start: 11-09-2024 End: 11-09-2024 Bamboo flowsheet Riccardo Gomez [employer]ING VESSEL OPERATOR [facility] Start: 11-09-2024 End: 11-09-2024 ambulatory Riccardo Gomez [employer] VESSEL OPERATOR [facility] Comment on above: Closed nondisplaced fracture of lateral malleolus of right fibula with routine healing (Primary Dx) Start: 11-07-2024 End: 11-07-2024 ambulatory RICCARDO GOMEZ Not Available Start: 11-07-2024 End: 11-07-2024 ambulatory Riccardo Gomez [employer] VESSEL OPERATOR [facility] Comment on above: Closed nondisplaced fracture of lateral malleolus of right fibula with routine healing (Primary Dx) Start: 11-02-2024 End: 11-02-2024 Bamboo flowsheet Riccardo Gomez [employer] VESSEL OPERATOR [facility] Start: 11-02-2024 End: 11-02-2024 Bamboo flowsheet Riccardo Gomez [employer]CIAL [employer]ING VESSEL [facility]ATOR [facility] Start: 11-02-2024 End: 11-02-2024 ambulatory Riccardo Gomez COMMERCIAL FISHING VESSEL OPERATOR [facility] Comment on above: Closed nondisplaced fracture of lateral malleolus of right fibula with routine healing (Primary Dx) Start: 10-30-2024 End: 10-30-2024 Bamboo flowsheet Riccardo Gomez COMMERCIAL FISHING VESSEL OPERATOR [facility] Start: 10-30-2024 End: 10-30-2024 Bamboo flowsheet Riccardo Gomez COMMERCIAL FISHING VESSEL OPERATOR [facility] Start: 10-30-2024 End: 10-30-2024 ambulatory Riccardo Gomez COMMERCIAL FISHING VESSEL OPERATOR [facility] Comment on above: Closed nondisplaced fracture of lateral malleolus of right fibula with routine healing (Primary Dx) Start: 10-26-2024 End: 10-26-2024 Bamboo flowsheet Riccardo Gomez COMMERCIAL FISHING VESSEL OPERATOR [facility] Start: 10-26-2024 End: 10-26-2024 Bamboo flowsheet Riccardo Gomez COMMERCIAL FISHING VESSEL OPERATOR [facility] Start: 10-26-2024 End: 10-26-2024 ambulatory Riccardo Gomez COMMERCIAL FISHING VESSEL OPERATOR [facility] Comment on above: Closed nondisplaced fracture of lateral malleolus of right fibula with routine healing (Primary Dx) Start: 10-24-2024 End: 10-24-2024 ambulatory Ashtyn Randall PT Work Phone: [facility] Comment on above: Closed nondisplaced fracture of lateral malleolus of right fibula with routine healing (Primary Dx) Start: 10-24-2024 End: 10-24-2024 Bamboo flowsheet Ashtyn Randall PT Work Phone: [facility] Start: 10-24-2024 End: 10-24-2024 Bamboo flowsheet Asthyn Randall PT Work Phone: [facility] Start: 10-22-2024 End: 10-22-2024 Bamboo flowsheet Kacey Pablo Apling SLIDE DEVELOPER Work Phone: [facility] Start: 10-22-2024 End: 10-22-2024 Bamboo flowsheet Kacey Shah Apling SLIDE DEVELOPER Work Phone: [facility] Start: 10-22-2024 End: 10-22-2024 ambulatory KACEY B APLING Not Available Start: 10-22-2024 End: 10-22-2024 Postop follow up visit related to original px Kacey B Apling SLIDE DEVELOPER Work Phone: [facility] Comment on above: Closed nondisplaced fracture of lateral malleolus of right fibula with routine healing (Primary Dx) Start: 10-10-2024 End: 10-10-2024 Bamboo flowsheet Kacey B Apling SLIDE DEVELOPER Work Phone: [facility] Start: 10-10-2024 End: 10-10-2024 Bamboo flowsheet Kacey B Apling SLIDE DEVELOPER Work Phone: [facility] Start: 10-10-2024 End: 10-10-2024 Postop follow up visit related to original px Kacey B Apling SLIDE DEVELOPER Work Phone: [facility] Comment on above: Closed nondisplaced fracture of lateral malleolus of right fibula with routine healing Start: 10-10-2024 End: 10-10-2024 ambulatory KACEY B APLING Not Available Start: 09-12-2024 End: 09-12-2024 Bamboo flowsheet Kacey B Apling SLIDE DEVELOPER Work Phone: [facility] Start: 09-12-2024 End: 09-12-2024 Bamboo flowsheet Kacey B Apling SLIDE DEVELOPER Work Phone: [facility] Start: 09-12-2024 End: 09-12-2024 ambulatory KACEY B APLING Not Available Start: 09-12-2024 End: 09-12-2024 Postop follow up visit related to original px Kacey B Apling SLIDE DEVELOPER Work Phone: [facility] Comment on above: Closed nondisplaced fracture of lateral malleolus of right fibula with routine healing (Primary Dx) Start: 09-05-2024 End: 09-05-2024 Bamboo flowsheet Kacey B Apling SLIDE DEVELOPER Work Phone: [facility] Start: 09-05-2024 End: 09-05-2024 Bamboo flowsheet Kacey B Apling SLIDE DEVELOPER Work Phone: [facility] Start: 09-05-2024 End: 09-05-2024 Postop follow up visit related to original px Kacey B Apling SLIDE DEVELOPER Work Phone: [facility] Comment on above: Closed nondisplaced fracture of lateral malleolus of right fibula with routine healing (Primary Dx); Sprain of ligament of right ankle, subsequent encounter Start: 09-05-2024 End: 09-05-2024 ambulatory KACEY B APLING Not Available Start: 08-15-2024 End: 08-15-2024 Bamboo flowsheet Kacey B Apling SLIDE DEVELOPER Work Phone: [facility] Start: 08-15-2024 End: 08-15-2024 Bamboo flowsheet Kacey Shah Geraapolinar SLIDE DEVELOPER Work Phone: [facility] Start: 08-15-2024 End: 08-15-2024 ambulatory KACEY JOHNS Not Available Start: 08-15-2024 End: 08-15-2024 Postop follow up visit related to original px Kacey Johns SLIDE DEVELOPER Work Phone: [facility] Comment on above: Sprain of ligament o f right ankle, subsequent encounter (Primary Dx); Closed nondisplaced fracture of lateral malleolus of right fibula with routine healing Start: 08-03-2024 End: 08-03-2024 Orders Only Sabiha Horner MD Work Phone: [facility] Comment on above: Vitamin D deficiency (Primary Dx) Start: 07-30-2024 End: 07-30-2024 Office outpatient new 30 minutes Kacey Johns SLIDE DEVELOPER Work Phone: [facility] Comment on above: Right ankle pain, un specified chronicity (Primary Dx); Sprain of right ankle, unspecified ligament, initial encounter; Nondisplaced fracture of lateral malleolus of right fibula, initial encounter for closed fracture Start: 07-30-2024 End: 07-30-2024 ambulatory KACEY JOHNS Not Available Start: 07-27-2024 End: 07-30-2024 Refill Tori Edouard NP Work Phone: [facility] Comment on above: Hypertension, unspec ified type (CMS/HCC); Primary hypertension (CMS/HCC); Mixed hyperlipidemia (CMS/HCC); ASCVD (arteriosclerotic cardiovascular disease) (CMS/HCC) Start: 07-25-2024 End: 07-25-2024 ambulatory JAYCEE VEGAS [facility] Start: 07-13-2024 End: 07-13-2024 Telephone encounter Sabiha Horner MD Work Phone: [facility] Start: 07-11-2024 End: 07-11-2024 ambulatory JAYCEE Velazquez [facility] Start: 06-06-2024 End: 06-07-2024 Evaluation and management of inpatient JAYCEE Ro VEGAS [facility] Start: 06-05-2024 End: 06-05-2024 ambulatory SABIHA HORNER [facility] Start: 04-30-2024 End: 04-30-2024 ambulatory TORI KAMPFER Not Available Start: 04-19-2024 End: 04-19-2024 ambulatory MIRIAM PAULINO [facility] Start: 04-18-2024 End: 04-18-2024 ambulatory MIRIAM PAULINO [facility] Start: 03-23-2024 End: 03-23-2024 ambulatory TORI KAMPFER Not Available Start: 01-31-2024 End: 01-31-2024 ambulatory TORI KAMPFER Not Available Start: 01-20-2024 End: 01-20-2024 ambulatory TORI KAMPFER Not Available Start: 01-05-2024 Bamboo flowsheet Aleks A Hackenburg SLIDE DEVELOPER Work Phone: [facility] Start: 01-05-2024 Bamboo flowsheet Aleks A Hackenburg SLIDE DEVELOPER Work Phone: [facility] Start: 01-05-2024 End: 01-05-2024 Office outpatient visit 25 minutes Aleks A Hackenburg SLIDE DEVELOPER Work Phone: [facility] Comment on above: Mixed hyperlipidemia (CMS/HCC) (Primary Dx); Hypertension, unspecified type (CMS/HCC) Start: 01-05-2024 End: 01-05-2024 ambulatory ALEKS A HACKENBURG Not Available Start: 01-04-2024 Orders Only Tori Kampfer SLIDE DEVELOPER Work Phone: [facility] Comment on above: Hypertension, unspec ified type (CMS/HCC) Start: 12-28-2023 End: 12-28-2023 ambulatory CHEMO SEVERINO Not Available Start: 12-28-2023 End: 12-28-2023 Office outpatient visit 25 minutes Chemo Severino DO Work Phone: [facility] Comment on above: Right hand pain (Sloane nani Dx); Capsulitis of hand Start: 12-21-2023 End: 12-21-2023 Office outpatient visit 25 minutes Tori Edouard SLIDE DEVELOPER Work Phone: [facility] Comment on above: Primary hypertension (CMS/HCC) (Primary Dx); Dysuria Start: 12-21-2023 End: 12-21-2023 ambulatory TORI EDOUARD Not Available Start: 09-28-2022 End: 09-29-[address] DOCTOR ANTHONY Facility:[facility] Start: 10-04-2021 End: 10-07-2021 Evaluation and management of inpatient DR SABIHA HORNER Facility:[facility] Procedures Date Procedure Procedure Detail Performing Clinician Start: 10-10-2024 Radex ankle complete minimum 3 views Kacey Johns SLIDE DEVELOPER Work Phone: Start: 09-12-2024 Radex ankle complete minimum 3 views Kacey Johns SLIDE DEVELOPER Work Phone: Start: 08-15-2024 Radex ankle complete minimum 3 views Kacey Johns SLIDE DEVELOPER Work Phone: Start: 04-18-2024 Follow-up visit Follow-up MIRIAM PAULINO Start: 12-28-2023 ED SPLINTING / CASTING / STRAPPING Linda Dowling MA Start: 12-28-2023 Radex hand minimum 3 views Chemo Severino DO Work Phone: Start: 12-21-2023 Urnls dip stick/tablet rgnt non-auto w/o micrscp Tori Edouard SLIDE DEVELOPER Work Phone: Start: 05-23-2023 H/O: hysterectomy History of hysterectomy Tori Edouard SLIDE DEVELOPER Work Phone: Start: 01-24-2023 Mammography Tori Edouard SLIDE DEVELOPER Work Phone: Plan of Treatment Date Care Activity Detail Author Start: 12-17-2024 End: 12-17-2024 Patient encounter procedure 12/17/2024 8:30 AM EST Office Visit [facility] [address] [place] [address] Kacey Johns, SLIDE DEVELOPER [address] [place] [address] [facility] Start: 12-13-2024 End: 12-13-2024 ambulatory 12/13/2024 7:00 AM EST Treatment [facility] [address] [place] [address] Riccardo Gomez PTA [facility] Start: 12-03-2024 End: 12-03-2024 Patient encounter procedure 12/03/2024 8:00 AM EST Office Visit [facility] [address] [place] [address] Kacey Johns SLIDE DEVELOPER [address] [place] [address] [facility] Start: 11-30-2024 End: 11-30-2024 ambulatory 11/30/2024 8:00 AM EST Treatment [facility] [address] [place] [address] Riccardo Gomez PTA [facility] Start: 11-28-2024 End: 11-28-2024 ambulatory 11/28/2024 7:30 AM EST Treatment [facility] [address] [place] [address] Riccardo Gomez PTA Closed nondisplaced fracture of lateral malleolus of right fibula with routine healing (Primary Dx) [facility] Comment on above: Closed nondisplaced fracture of lateral malleolus of right fibula with routine healing (Primary Dx) Start: 11-23-2024 End: 11-23-2024 ambulatory 11/23/2024 10:30 AM EST Treatment [facility] [address] [place] [address] Aisha Paris, PT [address] [place] [address] [facility] Start: 11-19-2024 End: 11-19-2024 ambulatory 11/19/2024 7:30 AM EST Treatment [facility] [address] [place] [address] Ashtyn Randall, PT [address] [place] [address] [facility] Start: 11-12-2024 End: 11-12-2024 ambulatory 11/12/2024 9:00 AM EST Treatment [facility] [address] [place] [address] Riccardo Gomez, LINDA [facility] Start: 11-09-2024 End: 11-09-2024 ambulatory 11/09/2024 8:30 AM EST Treatment [facility] [address] [facility] [address] [place] [address] Riccardo Gomez, COMMERCIAL FISHING VESSEL OPERATOR [facility] Start: 11-07-2024 End: 11-07-2024 ambulatory 11/07/2024 7:30 AM EST Treatment [facility] [address] [facility] [address] [place] [address] Riccardo Gomez, LINDA [facility] Start: 11-02-2024 End: 11-02-2024 ambulatory [facility] Comment on above: Arrived Start: 10-30-2024 End: 10-30-2024 ambulatory [facility] Comment on above: Arrived Start: 10-26-2024 End: 10-26-2024 ambulatory [facility] Comment on above: Arrived Start: 10-24-2024 End: 10-24-2024 ambulatory [facility] Comment on above: Closed nondisplaced fracture of lateral malleolus of right fibula with routine healing Start: 10-22-2024 End: 10-22-2024 Patient encounter procedure 10/22/2024 8:15 AM EST Office Visit [facility] [address] [place] [address] Kacey Johns, SLIDE DEVELOPER [address] [place] [address] [facility] Start: 10-10-2024 End: 10-10-2024 Patient encounter procedure [facility] Comment on above: Closed nondisplaced fracture of lateral malleolus of right fibula with routine healing Start: 09-12-2024 End: 09-12-2024 Patient encounter procedure 09/12/2024 8:15 AM EDT Office Visit [facility] [address] [place] [address] Kacey Johns, SLIDE DEVELOPER [address] [place] [address] [facility] Start: 09-05-2024 End: 09-05-2024 Patient encounter procedure 09/05/2024 8:00 AM EDT Office Visit [facility] [address] [place] [address] Kacey Johns, SLIDE DEVELOPER [address] [place] [address] Closed nondisplaced fracture of lateral malleolus of right fibula with routine healing (Primary Dx); Sprain of ligament of right ankle, subsequent encounter [facility] Comment on above: Closed nondisplaced fracture of lateral malleolus of right fibula with routine healing (Primary Dx); Sprain of ligament of right ankle, subsequent encounter Start: 08-20-2024 End: 08-20-2024 Patient encounter procedure 08/20/2024 10:00 AM EDT Office Visit [facility] [address] [place] [address] Kacey Johns, SLIDE DEVELOPER [address] [place] [address] [facility] Start: 07-22-2024 Influenza vaccination Influenza Vacc ine (#1) [facility] Start: 05-20-2024 Influenza vaccination Influenza Vacc ine (#1) [facility] Comment on above: Postponed from 07/22 (Patient Refused) Start: 03-26-2024 End: 03-26-2024 Patient encounter procedure 03/26/2024 10:30 AM EDT Office Visit [facility] [address] [facility] [place] [phone] Tori Edouard NP [address] [place] [address] [facility] Start: 01-25-2024 Screening for malign ant neoplasm of breast Mammogram [facility] Start: 01-05-2024 End: 01-05-2024 Patient encounter procedure [facility] Comment on above: Arrived Start: 01-04-2024 End: 01-04-2024 Patient encounter procedure 01/04/2024 4:00 PM EST Office Visit [facility] [address] [facility] [place] [id number] Tori Edouard NP [address] [place] [address] [facility] Start: 1975 Screening for malign ant neoplasm of colon [facility] Payers Date Payer Category Payer Private Health Insurance [employer] [id number] 2022 Unknown [employer] [id number] 2022-Present [address] [place] [address] [id number] 1974 Unknown [id number] 2.16.840.1.228633.3.579.2. 593 1974 Unknown [id number] 2.16.840.1.440292.3.579.2. 593 1974 Unknown [id number] 2.16.840.1.669956.3.579.2. 1286 1974 Unknown [id number] 2.16.840.1.023448.3.579.2. 1285 1974 Unknown [id number] 2.16.840.1.286131.3.579.2. 1285 1974 Unknown [id number] 2.16840.1.220604.3.579.2. 1285 1974 Unknown [id number] 2.16.840.1.411599.3.579.2. 1285 1974 Unknown [id number] 2.16.840.1.260437.3.579.2. 1285 1974 Unknown [id number] 2.16.840.1.251738.3.579.2. 128 1974 Unknown [id number] 2.16840.1.847990.3.579.2. 9 1974 Unknown [id number] 2.16.840.1.703348.3.579.2. 1259 1974 Unknown [id number] 2.16.840.1.788357.3.579.2. 1258 1974 Unknown [id number] 2.16.840.1.846847.3.579.2. 9 1974 Unknown [id number] 2.16.840.1.486794.3.579.2. 9 1974 Unknown [id number] 2.16.840.1.080322.3.579.2. 1258 1974 Unknown [id number] 2.16.840.1.512751.3.579.2. 1258 1974 Unknown [id number] 2.16.840.1.649153.3.579.2. 1258 1974 Unknown [id number] 2.16.840.1.047967.3.579.2. 1258 1974 Unknown [id number] 2.16.840.1.194458.3.579.2. 1258 1974 Unknown [id number] 2.840.1.220121.3.579.2. 1258 1974 Unknown [id number] 2.840.1.552887.3.579.2. 1258 1974 Unknown [id number] .840.1.161309.3.579.2. 1258 1974 Unknown [id number] .840.1.211296.3.579.2. 1258 1974 Unknown [id number] .840.1.544609.3.579.2. 1258 1974 Unknown [id number] .840.1.175020.3.579.2. 1258 1974 Unknown [id number] .840.1.424262.3.579.2. 1258 1974 Unknown [id number] .840.1.311494.3.579.2. 1258 1974 Unknown [id number] 2.16840.1.402442.3.579.2. 1258 1974 Unknown [id number] .16840.1.163582.3.579.2. 1258 1974 Unknown [id number] 2.840.1.082896.3.579.2. 1258 1974 Unknown [id number] 2.16.840.1.632457.3.579.2. 1258 1974 Unknown [id number] 2.16.840.1.968325.3.579.2. 1258 1974 Unknown [id number] 2.16.840.1.505806.3.579.2. 1258 1974 Unknown [id number] 2.16.840.1.752196.3.579.2. 1258 1974 Unknown [id number] 2.16.840.1.932348.3.579.2. 1258 1974 Unknown [id number] 2.16.840.1.503899.3.579.2. 1258 1974 Unknown [id number] 2.16.840.1.985828.3.579.2. 1258 1974 Unknown [id number] 2.16.840.1.145965.3.579.2. 1258 1974 Unknown [id number] 2.16.840.1.550055.3.579.2. 9 1959 Unknown [id number] Social History Date Type Detail Facility Start: 05-25-2023 Tobacco smoking status [facility] Never sm oked tobacco [facility] Start: 05-25-2023 End: 07-30-2024 Tobacco use and exposure Smokeless tobacco non-user [facility] Start: 12-21-2023 End: 12-03-2024 Alcohol intake Current drinker of alcohol (finding) [facility] Start: 05-23-2023 End: 01-05-2024 History of Social function [facility] Start: 05-23-2023 End: 01-05-2024 Humiliation, Afraid, Rape, and Kick questionnaire [HARK] [facility] Within the last year , have you been afraid of your partner or ex-partner? No [facility] How often do you att end mu-ism or gnosticist services? Patient refused [facility] Are you now , , , , never or living with a partner? [facility] How often to you hav e a drink containing alcohol? 4 or more times a week [facility] How many standard dr inks containing alcohol do you have on a typical day? 1 or 2 [facility] How often do you hav e 6 or more drinks on 1 occasion? Less than monthly [facility] Do you feel stress - tense, restless, nervous, or anxious, or unable to sleep at night because your mind is troubled all the time - these days [OSQ] To some extent [facility] (I/We) worried wheth er (my/our) food would run out before (I/we) got money to buy more. Never true [facility] Start: 11-01-2023 Alcohol Comment caffeine intake: 0 [facility] Start: 1975 Sex Assigned At Female [facility] Start: 02-02-2023 Gender identity Identifies as female gender (finding) [facility] Start: 02-02-2023 Sexual orientation Choose not to dis close [facility] Start: 01-05-2024 Alcohol Comment caffeine intake: 0-1 cup [facility] Start: 07-30-2024 Tobacco smoking status NHIS Ex-smoke r [facility] History of tobacco use Current smoker [facility] History of tobacco use Cigarette Smoker [facility] How often to you hav e a drink containing alcohol? 2-3 time sa week [facility] How often do you hav e 6 or more drinks on 1 occasion? Never [facility] Start: 01-20-2024 Alcohol Comment caffeine intake: [facility] Clinical Notes 12-28-2023 to 12-06-2024 Ashtyn Randall, PT - 12/06/2024 7:00 AM ESTMaria B Nat SLIDE DEVELOPER - 12/03/2024 8:00 AM ESTMaria B Nat, SLIDE DEVELOPER - 10/22/2024 8:15 AM ESTMaria B Nat, SLIDE DEVELOPER - 10/10/2024 8:15 AM ESTPatient Instructions Note Date & Type Note Facility 12-06-2024 History of Presen t illness Narrative Images from the original note were not included. Physical Therapy Progress Visit Patient Name: Aislinn Nair Today's Date: 12/06/2024 Encounter Diagnoses Name Primary? Closed nondisplaced fracture of lateral malleolus of right fibula with routine healing Yes Visit number: 3 (8 visits in 2023) Timed Code Treatment Minutes: 44 minutes Total Treatment Time: 44 minutes Time In: 0710 Time Out: 0754 History: Pt. Presents to PT with c/c of right ankle fracture with DOI 07/28/24. Pt. Was in CAM boot for 8 weeks. Pt. Reports she is having increased ankle pain/stiffness. Feels she is limping while walking. Pt. Is now FWB in tennis shoes. 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 Precautions: as tolerated Subjective: Pt reports she continues to have lateral ankle pain while standing for long periods of time while at work. Reports she has made good progress with PT treatment but ankle is still not 100%. Pain: 2-01/28 today Objective: PT Evaluation (10/24/24) Right AROM: dorsiflexion 6 degree, Planterflexion 40 deg, EV 5 deg, INV 15 deg Flexibility: moderate - calf muscle tightness, Strength: EV 4-/5, DF 4/5, PF 4/5, Gait: limping gait pattern Observation: fungal looking quarter size oval spot on the metatarsal area on bottom of right foot. Pt. Has been putting OTC cream but no improvement. Treatment: Education: HEP education with demonstration, Educated on Eval Findings and POC Manual Therapy: (12 minutes) ankle PROM in all planes, talocural joint mobility, Passive ROM, Joint mobilization, Soft Tissue Mobilization, Myofascial Release, Muscle Energy Technique, Neural Mobilization, Myofascial Cupping, Dry Needling, IASTM, and Scar mobilization Therapeutic Exercise: (20 minutes) exercises in grid; Strength, Endurance, Flexibility, ROM, HEP, Neural Mobilization, Power, and Core Stability. 5 minutes BIKE and additional minutes unsupervised. Therapeutic Activity: Exercises to improve dynamic activities, functional tasks, functional mobility to return to prior activity level Neuromuscular re-education: (12 minutes) Balance Training, Muscle Facilitation, Dynamic Stability, Core Stabilization, and Blood Flow Restriction Training (BFRT). Unsupervised Modalities: Heat, Ice, Electrical Stimulation, Ultrasound, Cervical Mechanical Traction, Lumbar Mechanical Traction, Iontophoresis, and Fluidotherapy. CP x10 minutes right ankle for symptom relief. Assessment: Pt. Has participated in 11 PT session with start of POC on 10/24 for right ankle pain/stiffness. Pt. Will benefit from skilled PT services to help improve ankle ROM/flexibility/strength/balance. Pt. Demonstrates good ankle ROM grossly in all planes. Good strength in all planes except eversion 4/5 with pain. TTP over ATFL. Recommend MRI of right ankle due to plateau of progress toward PT goals. If MRI is negative recommend dry needling treatment to help decrease pain. Outcome Measure: in chart Short Term Goal: To be met in 2 weeks Goal 1: Pt to be instructed in home exercise program. Hospital Security Officer Goals: To be met in 10 weeks Goal 1: Pt to report independence and compliance with home program (progressing). Goal 2: Pt. Will report of 0/10 right ankle pain while walk/standing for long periods of time to help improve her quality of life and return to PLOF (Progressing 2/10 pain). Goal 3: Pt. Will demonstrate normal calf muscle flexibility to allow her walk/stand for long periods of time to help improve her quality of life- (Progressing). Goal 4: Pt. Will demonstrate 5/5 right ankle strength grossly in all planes to allow her to walk/stand for long periods of time to help improve her quality of life (4/5 ankle Ev, 5/5 DF/PF/Inv). Goal 5: Pt. Will demonstrate normalized gait pattern to help return to PLOF (Progressing). Pt will benefit from skilled PT for 2x/week from 10/24/24 to 01/05/25 to address the above impairments. Plateau of progress with PT treatment. I hereby deem this POC medically necessary. Please sign below. Date: documented in this encounter [facility] 12-03-2024 History of Presen t illness Narrative Subjective Patient ID: Aislinn Nair is a 49 y.o. female. RT Ankle Fx. DOI 07/28/24 P.T. # 8 jose manuel brooks with 80% improvement. Last day was Tuesday, waited until today to see if she needed more. 18 weeks and 1 day ago she was walking to the bathroom and twisted her ankle and fell to the ground. Went to [facility] ER on 07/29/24 and placed in posterior splint. Had xrays of the right foot and ankle done on 07/29/24. She is using a knee walker from her dad. Notes she sprains and twists her ankles often, but she has never fractured this ankle or had sx on it in the past. FWB in crocs. Soreness lateral ankle, depends on the movements. Taking meloxicam. Using ice. Admits swelling. Elevating. Painful with ROM. Denies N/T. Does not wake at HS. Feels like she limps more when not wearing shoes. Pain is 1-2/10 today, goes to about 5/10 with WB. TX: [facility] ER/XR right foot/ankle 07/29/24, posterior splint, crutches, ice, tyl, motrin, XR NOMS 08/15/24, XR NOMS 09/12/24, XR NOMS 10/10/24 She is back to work, she works in a kitchen and stands all day. Lower Extremity Issue The symptoms are aggravated by movement, palpation and weight bearing. Objective Ortho Exam Foot/Ankle Musculoskeletal Exam Gait Gait additional comments: FWB in clogs Inspection Right Erythema: none Effusion: none Edema: none Palpation Right Tenderness: present Palpation additional comments: Distal fibula Range of Motion Range of motion additional comments: No pain with ROM, pain with resisted ER Neurovascular Right Pulses - PT: normal Posterior tibial: 2+ I reviewed the p.t. note from 11/19/24 #8 pt improving but still having some mild tenderness and swelling. Assessment/Plan Encounter Diagnoses: ICD-10-CM 1. Sprain of ligament of right ankle, subsequent encounter S93.401D 2. Closed nondisplaced fracture of lateral malleolus of right fibula with routine healing S82.64XD Activities as tolerated, f/U prn, may continue with therapy and HEP, discussed an MRI and she notes she will wait to see how she does. documented in this encounter [facility] 10-22-2024 History of Presen t illness Narrative Subjective Patient ID: Aislinn Nair is a 49 y.o. female. RT Ankle Fx. DOI 07/28/24 *Check ROM 12 weeks and 2 days ago she was walking to the bathroom and twisted her ankle and fell to the ground. Went to [facility] ER on 07/29/24 and placed in posterior splint. Had xrays of the right foot and ankle done on 07/29/24. She is using a knee walker from her dad. Notes she sprains and twists her ankles often, but she has never fractured this ankle or had sx on it in the past. FWB in tennis shoes. Notes soreness diffuse in ankle and foot, mostly with lots of movement. Taking motrin or TYL prn. No longer using ice. Denies topicals. Admits swelling, pretty constant, depending on activity of working it may swell more. Denies N/T. Feels like she is limping. Admits pulling/tightness with ROM. Denies waking at HS. Pain is 1/10 today, goes to 4/10 with lots of walking at work. TX: [facility] ER/XR right foot/ankle 07/29/24, posterior splint, crutches, ice, tyl, motrin, XR NOMS 08/15/24, XR NOMS 09/12/24, XR NOMS 10/10/24 She is back to work, she works in a kitchen and stands all day. Lower Extremity Issue The symptoms are aggravated by movement, palpation and weight bearing. Objective Ortho Exam Foot/Ankle Musculoskeletal Exam Gait Gait additional comments: FWB, trace diffuse swelling in the ankle Inspection Right Erythema: none Effusion: none Edema: none Palpation Right Tenderness: none Range of Motion Range of motion additional comments: No pain with ROM Neurovascular Right Pulses - PT: normal Posterior tibial: 2+ Assessment/Plan Encounter Diagnoses: ICD-10-CM 1. Closed nondisplaced fracture of lateral malleolus of right fibula with routine healing S82.64XD She may do activities as tolerated, f/U in 6-8 weeks to check ROM, will send to therapy in [facility] documented in this encounter [facility] 10-10-2024 History of Presen t illness Narrative Subjective Patient ID: Aislinn Nair is a 49 y.o. female. RT Ankle Fx. DOI 07/28/24 10 weeks and 3 days ago she was walking to the bathroom and twisted her ankle and fell to the ground. Went to [facility] ER on 07/29/24 and placed in posterior splint. Had xrays of the right foot and ankle done on 07/29/24. She is using a knee walker from her dad. Notes she sprains and twists her ankles often, but she has never fractured this ankle or had sx on it in the past. Presents in cam boot, notes she has been walking without it and does not have pain. Denies pain at rest. Pain worse at the end of the day /10 when she is at work, otherwise has no pain, she is standing and walking a lot at work. Pain lateral ankle, and occas dorsum of her foot she thinks from the boot strap. Denies N/T. Admits swelling in ankle and foot, this has resolved. Denies ice, heat or creams. She is taking TYL prn. No longer waking at night TX: [facility] ER/XR right foot/ankle 07/29/24, posterior splint, crutches, ice, tyl, motrin, XR NOMS 08/15/24, XR NOMS 09/12/24, XR NOMS 10/10/24 She is back to work, she works in a kitchen and stands all day. Lower Extremity Issue The symptoms are aggravated by movement, palpation and weight bearing. Objective Ortho Exam Foot/Ankle Musculoskeletal Exam Gait Gait additional comments: Cam boot, FWB, no skin breakdown from the boot Inspection Right Erythema: none Effusion: none Edema: none Palpation Right Tenderness: none Range of Motion Range of motion additional comments: No pain with ROM Neurovascular Right Pulses - PT: normal Posterior tibial: 2+ XR ankle 3+ views right Imaging Result: Xrays AP, LAT and OBL of the right ankle performed on October 10, 2024 demonstrates demonstrates a symmetric ankle mortise. There is callus formation and filling in of the bone of the lateral malleolus. Impression Healing non displaced lateral malleolus fracture Kacey Johns [employer] SUPER[employer] Assessment/Plan Encounter Diagnoses: ICD-10-CM 1. Closed nondisplaced fracture of lateral malleolus of right fibula with routine healing S82.64XD XR ankle 3+ views right She may wean from the boot into a closed toe shoe, f/U in 2-3 weeks will recommend therapy in addition after 2-3 weeks documented in this encounter [facility] 09-12-2024 History of Presen t illness Narrative Subjective Patient ID: Aislinn Nair is a 49 y.o. female. RT Ankle Fx. DOI 07/28/24 6 weeks and 3 days ago she was walking to the bathroom and twisted her ankle and fell to the ground. Went to [facility] ER on 07/29/24 and placed in posterior splint. Had xrays of the right foot and ankle done on 07/29/24. She is using a knee walker from her dad. Notes she sprains and twists her ankles often, but she has never fractured this ankle or had sx on it in the past. Denies pain at rest. Pain worse at the end of the day 3-02/28 when she is at work, otherwise has no pain, she is standing and walking a lot at work. Pain lateral ankle. Denies N/T. Admits swelling in ankle and foot, this is improving. Denies ice, heat or creams. She is taking IBU prn. No longer waking at night TX: [facility] ER/XR right foot/ankle 07/29/24, posterior splint, crutches, ice, tyl, motrin, XR NOMS 08/15/24, XR NOMS 09/12/24 She is back to work, she works in a kitchen and stands all day. Lower Extremity Issue The symptoms are aggravated by movement, palpation and weight bearing. Objective Ortho Exam Foot/Ankle Musculoskeletal Exam Gait Gait additional comments: Cam boot, FWB, no skin breakdown from the boot Inspection Right Erythema: none Effusion: none Edema: mild Palpation Right Tenderness: present Distal fibula: mild Range of Motion Range of motion additional comments: Not tested due to fracture Neurovascular Right Pulses - PT: normal Posterior tibial: 2+ XR ankle 3+ views right Imaging Result: Xrays AP, LAT and OBL of the right ankle performed on September 12, 2024 demonstrates a symmetric ankle mortise. There is callus formation and filling in of the bone of the lateral malleolus. Impression Healing non displaced lateral malleolus fracture Kacey Johns [employer] SUPERVISOR Assessment/Plan Encounter Diagnoses: ICD-10-CM 1. Closed nondisplaced fracture of lateral malleolus of right fibula with routine healing S82.64XD XR ankle 3+ views right Discussed fracture care and treatment. Answered all questions. Also discussed risks for non union. F/U in 4 weeks with xrays, she may take off to bathe and shower, also to sleep documented in this encounter [facility] 09-05-2024 History of Presen t illness Narrative Images from the original note were not included. Subjective Patient ID: Aislinn Nair is a 49 y.o. female. RT Ankle Fx. DOI 07/28/24. *She is here for an unscheduled visit, having issues with her boot again* notes the bottom of the boot is starting to come apart like her previous boot, this started 3 days ago (Tuesday). Also notes the boot clicks when she walks. States she wears the boot all the time except to shower, she sleeps in the boot. 5 weeks 3 days ago she was walking to the bathroom and twisted her ankle and fell to the ground. Went to [facility] ER on 07/29/24 and placed in posterior splint. Had xrays of the right foot and ankle done on 07/29/24. No longer uses knee walker. Notes she sprains and twists her ankles often, but she has never fractured this ankle or had sx on it in the past. Denies pain at rest. Pain at worst 5-6/10 with a lot of walking. Pain lateral ankle, and occas radiates into her calf and into her foot and to outer 3 toes. Admits N/T which comes and goes in her 3rd 4th and 5th toes, since last visit. Admits swelling in ankle and foot, this is improving. Denies ice, heat or creams. She takes motrin daily, and also takes tyl as needed. Admits occas waking at night. TX: [facility] ER/XR right foot/ankle 07/29/24, posterior splint, crutches, ice, tyl, motrin, XR NOMS 08/15/24, cam boot She is back to work, she works in a kitchen and stands all day. Objective Ortho Exam The rubber on the heel of the boot is peeling away from the boot Assessment/Plan Encounter Diagnoses: ICD-10-CM 1. Closed nondisplaced fracture of lateral malleolus of right fibula with routine healing S82.64XD 2. Sprain of ligament of right ankle, subsequent encounter S93.401D New boot fitted and dispensed in office, f/U regular scheduled appt with xrays Discussed fracture care and treatment. Answered all questions. Also discussed risks for non union. A right L4361 Walking Boot, Pneumatic and/or Vacuum, With or Without Joints, Prefabricated, Off the Shelf was dispensed and applied at this visit. Due to the patient's diagnosis and related symptoms this is medically necessary for treatment. The function of this device is to restrict and limit motion, provide stabilization, immobilization, and compression to the affected area. The goals and function-of this device were explained in detail to the patient. Upon gait analysis, the device appeared to be fitting well and the patient states that the device is comfortable at this time. The patient was shown and told in detail how to properly wear and care for the device. They were able to apply the device properly themselves and able to ambulate without distress. At the time the device was dispensed, it was suitable for the condition and was not substandard. No guarantees were given and precautions were reviewed. Written instructions and warranty information was given along with the list of the current Durable Medical Equipment Supplier Guidelines. The patient was given a patient education sheet regarding signs and symptoms of a DVT and was instructed to call the doctor immediately if they experience any symptoms. documented in this encounter [facility] 08-15-2024 History of Presen t illness Narrative Images from the original note were not included. Subjective Patient ID: Aislinn Nair is a 49 y.o. female. RT Ankle Fx. DOI 07/28/24 *She is here for an unscheduled visit, her boot is broken* Notes the heel of the boot is falling apart. 2 weeks and 4 days ago she was walking to the bathroom and twisted her ankle and fell to the ground. Went to [facility] ER on 07/29/24 and placed in posterior splint. Had xrays of the right foot and ankle done on 07/29/24. She is using a knee walker from her dad. Notes she sprains and twists her ankles often, but she has never fractured this ankle or had sx on it in the past. Denies pain at rest. Pain at worst 4-5/10 with a lot of walking. Pain lateral ankle, and occas radiates into her calf and into her foot. Admits N/T which comes and goes in her 3rd 4th and 5th toes, since last visit. Admits swelling in ankle and foot, this is improving. Denies ice, heat or creams. She takes motrin daily. Admits occas waking at night. TX: [facility] ER/XR right foot/ankle 07/29/24, posterior splint, crutches, ice, tyl, motrin, XR NOMS 08/15/24 She is back to work, she works in a kitchen and stands all day. Lower Extremity Issue The symptoms are aggravated by movement, palpation and weight bearing. Objective Ortho Exam Foot/Ankle Musculoskeletal Exam Gait Gait additional comments: Cam boot, FWB Inspection Right Erythema: none Effusion: none Edema: none Ecchymosis: small Ecchymosis comment: proximal to achilles Palpation Right Tenderness: present ATFL: mild Distal fibula: moderate Range of Motion Range of motion additional comments: Not tested due to fracture Neurovascular Right Pulses - PT: normal Posterior tibial: 2+ XR ankle 3+ views right Imaging Result: August 15, 2024 x-rays AP lateral and mortise of the right ankle demonstrate a symmetric ankle mortise. There appears to be a healed fracture of the lateral malleolus which was nondisplaced and has a subacute appearance. Impression: Stable appearance of right ankle with evidence of old healed lateral malleolus ankle fracture Ksihore Escobar D.O. Assessment/Plan Encounter Diagnoses: ICD-10-CM 1. Sprain of ligament of right ankle, subsequent encounter S93.401D XR ankle 3+ views right 2. Closed nondisplaced fracture of lateral malleolus of right fibula with routine healing S82.64XD New boot fitted and dispensed in office, f/U in 4 weeks with xrays, she may WBAT in the boot Discussed fracture care and treatment. Answered all questions. Also discussed risks for non union. A right L4361 Walking Boot, Pneumatic and/or Vacuum, With or Without Joints, Prefabricated, Off the Shelf was dispensed and applied at this visit. Due to the patient's diagnosis and related symptoms this is medically necessary for treatment. The function of this device is to restrict and limit motion, provide stabilization, immobilization, and compression to the affected area. The goals and function-of this device were explained in detail to the patient. Upon gait analysis, the device appeared to be fitting well and the patient states that the device is comfortable at this time. The patient was shown and told in detail how to properly wear and care for the device. They were able to apply the device properly themselves and able to ambulate without distress. At the time the device was dispensed, it was suitable for the condition and was not substandard. No guarantees were given and precautions were reviewed. Written instructions and warranty information was given along with the list of the current Durable Medical Equipment Supplier Guidelines. The patient was given a patient education sheet regarding signs and symptoms of a DVT and was instructed to call the doctor immediately if they experience any symptoms. Answers submitted by the patient for this visit: Lower Extremity Injury Questionnaire (Submitted on 07/30/2024) Chief Complaint: Lower extremity pain Incident occurred: 2 days ago Incident location: at home Injury mechanism: a twisting injury Pain location: right ankle Pain quality: aching, burning, stabbing Pain - numeric: 6/10 Pain course: constant inability to bear weight: Yes loss of motion: Yes Foreign body present: no foreign bodies documented in this encounter [facility] 07-30-2024 History of Presen t illness Narrative Images from the original note were not included. Subjective Patient ID: Aislinn Nair is a 49 y.o. female. RT Ankle Fx. DOI 07/28/24 2 days ago she was walking to the bathroom and twisted her ankle and fell to the ground. Went to [facility] ER on 07/29/24 and placed in posterior splint. Had xrays of the right foot and ankle done on 07/29/24. She is using a knee walker from her dad. Notes she sprains and twists her ankles often, but she has never fractured this ankle or had sx on it in the past. Pain lateral ankle, pain is constant and varies in severity. Pain occas radiates up lateral lower leg. Pain at rest 6/10. Pain at worst 8-9/10 with movement. Denies N/T. Admits swelling in ankle and foot. She has been icing. She has been alternating tyl and motrin with some relief. Admits waking at night. TX: [facility] ER/XR right foot/ankle 07/29/24, posterior splint, crutches, ice, tyl, motrin Here with her [employer] Lower Extremity Issue The symptoms are aggravated by movement, palpation and weight bearing. Objective Ortho Exam Foot/Ankle Musculoskeletal Exam Inspection Right Erythema: none Effusion: none Edema: mild Ecchymosis: small Palpation Right Tenderness: present ATFL: moderate CFL: moderate Distal fibula: moderate Range of Motion Range of motion additional comments: Not tested due to fracture Neurovascular Right Pulses - PT: normal Posterior tibial: 2+ I reviewed the xrays of the right foot and ankle done at [facility] on 07/29/24 reveals possible nondisplaced fracture of lateral malleolus. I reviewed [facility] er note from 07/29/24 in addition, placed in posterior splint and patient had crutches already, referred to ortho. Assessment/Plan Encounter Diagnoses: ICD-10-CM 1. Right ankle pain, unspecified chronicity M25.571 2. Sprain of right ankle, unspecified ligament, initial encounter S93.401A 3. Nondisplaced fracture of lateral malleolus of right fibula, initial encounter for closed fracture S82.64XA A right L4361 Walking Boot, Pneumatic and/or Vacuum, With or Without Joints, Prefabricated, Off the Shelf was dispensed and applied at this visit. Due to the patient's diagnosis and related symptoms this is medically necessary for treatment. The function of this device is to restrict and limit motion, provide stabilization, immobilization, and compression to the affected area. The goals and function-of this device were explained in detail to the patient. Upon gait analysis, the device appeared to be fitting well and the patient states that the device is comfortable at this time. The patient was shown and told in detail how to properly wear and care for the device. They were able to apply the device properly themselves and able to ambulate without distress. At the time the device was dispensed, it was suitable for the condition and was not substandard. No guarantees were given and precautions were reviewed. Written instructions and warranty information was given along with the list of the current Durable Medical Equipment Supplier Guidelines. The patient was given a patient education sheet regarding signs and symptoms of a DVT and was instructed to call the doctor immediately if they experience any symptoms. F/U in 3-4 weeks with xrays of the ankle, we discussed she may WBAT in the boot, she may work with the boot on otherwise will keep her off. Discussed fracture care and treatment. Answered all questions. Also discussed risks for non union. Answers submitted by the patient for this visit: Lower Extremity Injury Questionnaire (Submitted on 07/30/2024) Chief Complaint: Lower extremity pain Incident occurred: 2 days ago Incident location: at home Injury mechanism: a twisting injury Pain location: right ankle Pain quality: aching, burning, stabbing Pain - numeric: 6/10 Pain course: constant inability to bear weight: Yes loss of motion: Yes Foreign body present: no foreign bodies documented in this encounter [facility] 07-13-2024 Telephone encount er Note Aislinn needs a refill on her Meloxicam 15mg *Not visible on med list Drug [place], James [facility] 07-13-2024 Miscellaneous Notes Formattin g of this note might be different from the original. Aislinn needs a refill on her Meloxicam 15mg *Not visible on med list Drug [place], James documented in this encounter [facility] 01-05-2024 History of Presen t illness Narrative Nadia Nair is a 48 y.o. female presents with chief complaint of Hypertension (2 week follow up) HPI: Patient took bp medication hours ago. Patient is also fasting and wants blood work done. She does check at home, and has been running aroud 140/90s. Hypertension This is a recurrent problem. The current episode started more than 1 year ago. The problem is unchanged. Associated symptoms include anxiety, blurred vision, headaches and malaise/fatigue. Pertinent negatives include no chest pain, neck pain, palpitations, peripheral edema, shortness of breath or sweats. SUBJECTIVE: MEDICATIONS: Current Outpatient Medications Medication Instructions busPIRone (BUSPAR) 10 mg, Oral, 2 times daily fluticasone (Flonase) 50 MCG/ACT nasal spray 1 spray, Each Nostril, Daily hydrOXYzine HCl (ATARAX) 25 mg, Oral, Every 12 hours PRN lisinopril 30 mg, Oral, Every morning loratadine (CLARITIN) 10 mg, Oral, Daily metoprolol tartrate (LOPRESSOR) 25 mg, Oral, 2 times daily rosuvastatin (CRESTOR) 10 mg, Oral, Every morning REVIEW OF SYMPTOMS: Review of Systems Constitutional: Positive for malaise/fatigue. Eyes: Positive for blurred vision. Respiratory: Negative for shortness of breath. Cardiovascular: Negative for chest pain and palpitations. Musculoskeletal: Negative for neck pain. Neurological: Positive for headaches. All other systems reviewed and are negative. OBJECTIVE: Visit Vitals BP 142/90 (BP Location: Left arm, Patient Position: Sitting, BP Cuff Size: Large adult) Pulse 83 Temp 96.6 F (Temporal) Ht 5' 6 Wt 219 lb 3.2 oz SpO2 95% BMI 35.38 kg/m Smoking Status Never BSA 2.15 m Physical Exam Vitals and nursing note reviewed. Constitutional: Appearance: Normal appearance. HENT: Head: Normocephalic and atraumatic. Right Ear: Tympanic membrane normal. Left Ear: Tympanic membrane normal. Nose: Nose normal. Eyes: Extraocular Movements: Extraocular movements intact. Conjunctiva/sclera: Conjunctivae normal. Pupils: Pupils are equal, round, and reactive to light. Cardiovascular: Rate and Rhythm: Normal rate and regular rhythm. Heart sounds: Normal heart sounds. Pulmonary: Effort: Pulmonary effort is normal. Breath sounds: Normal breath sounds. Musculoskeletal: Cervical back: Normal range of motion and neck supple. Neurological: Mental Status: She is alert. ASSESSMENT AND PLAN: Assessment/Plan Diagnoses and all orders for this visit: Mixed hyperlipidemia (CMS/HCC) Recheck labs as ordered. Hypertension, unspecified type (CMS/HCC) - lisinopril 40 MG tablet; Take 1 tablet (40 mg) by mouth in the morning. Increase lisinopril to 40 mg daily. Discussed current management plan. Goal BP less then 130/80. Discussed heart healthy diet, increase fruits and vegetables, limit salt intake. Encouraged increase physical exercise, try to be as active as possible at least 150 mins per week. Importance of weight management with a goal BMI less then 27 discussed. Discussed complications of uncontrolled blood pressure. Patient instructed to monitor BP's 1-2 times a week, keep a log, and bring to next visit. Barriers to care and medication compliance discussed. Patient voices understanding of meds. I spent more than 30 minutes with the patient. Greater than 50 percent of my time was spent on counseling and recommendations for plan of care. documented in this encounter [facility] 12-28-2023 History of Presen t illness Narrative Associated Problem(s): Hypertension (CMS/HCC) Increase lisinopril to 30mg daily. Nadia Nair is a 48 y.o. female presents with chief complaint of Hypertension HPI: HPI Patient is here for HTN. She did bring in her bp cuff to compare. Hers is reading 147/112, while we have 140/90. She is taking her bp medication as recommended in the mornings. She is not exercising and is not adhering to a low salt diet. She c/o headache, and ears ringing. SUBJECTIVE: MEDICATIONS: Current Outpatient Medications Medication Instructions busPIRone (BUSPAR) 10 mg, Oral, 2 times daily fluticasone (Flonase) 50 MCG/ACT nasal spray 1 spray, Each Nostril, Daily hydrOXYzine HCl (ATARAX) 25 mg, Oral, Every 12 hours PRN lisinopril 20 mg, Oral, Every morning loratadine (CLARITIN) 10 mg, Oral, Daily Meloxicam 15 MG tablet dispersible 1 tablet, Oral, Daily with breakfast metoprolol tartrate (LOPRESSOR) 25 mg, Oral, 2 times daily rosuvastatin (CRESTOR) 10 mg, Oral, Every morning REVIEW OF SYMPTOMS: Review of Systems Constitutional: Negative. HENT: Negative. Eyes: Negative. Respiratory: Negative. Cardiovascular: Negative. Gastrointestinal: Negative. Genitourinary: Negative. Musculoskeletal: Negative. Skin: Negative. Neurological: Negative. OBJECTIVE: Visit Vitals BP 140/90 (BP Location: Left arm, Patient Position: Sitting, BP Cuff Size: Large adult) Pulse 101 Ht 5' 6 Wt 218 lb 3.2 oz SpO2 97% BMI 35.22 kg/m Smoking Status Never BSA 2.15 m Physical Exam Vitals reviewed. Constitutional: Appearance: She is obese. HENT: Head: Normocephalic and atraumatic. Nose: Nose normal. Mouth/Throat: Mouth: Mucous membranes are moist. Eyes: Pupils: Pupils are equal, round, and reactive to light. Cardiovascular: Rate and Rhythm: Normal rate and regular rhythm. Pulses: Normal pulses. Heart sounds: Normal heart sounds. Pulmonary: Effort: Pulmonary effort is normal. Breath sounds: Normal breath sounds. Musculoskeletal: Cervical back: Normal range of motion and neck supple. Right lower leg: No edema. Left lower leg: No edema. Skin: General: Skin is warm and dry. Capillary Refill: Capillary refill takes less than 2 seconds. Findings: No rash. Neurological: General: No focal deficit present. Mental Status: She is alert and oriented to person, place, and time. ASSESSMENT AND PLAN: Assessment/Plan Problem List Items Addressed This Visit Hypertension (CMS/HCC) - Primary Increase lisinopril to 30mg daily. Discussed current management plan. Goal BP less then 130/80. Discussed heart healthy diet, increase fruits and vegetables, limit salt intake. Encouraged increase physical exercise, try to be as active as possible at least 150 mins per week. Importance of weight management with a goal BMI less then 27 discussed. Discussed complications of uncontrolled blood pressure. Patient instructed to monitor BP's 1-2 times a week, keep a log, and bring to next visit. Barriers to care and medication compliance discussed. Patient voices understanding of meds. Other Visit Diagnoses Dysuria Relevant Orders POCT Urinalysis dipstick (Completed) -Negative. Not currently symptomatic, instructed to notify office if symptoms return. documented in this encounter [facility] 12-28-2023 History of Presen t illness Narrative HPI: Historian of HPI: patient Aislinn Nair is a 48 y.o. female who presents today to the Urgent Care with the following complaints and denials due right hand pain which has been present for 1 day(s). C/O Denies Symptom Comments [x] [] swelling [] [x] ecchymosis [] [x] erythema [x] [] tingling [] [x] numbness [] [x] Pain radiation [x] [] Weakness [x] [] Decreased ROM [] [x] Trauma Additional Comments: pt has taken ibuprofen OTC medication without relief Pt denies heat application to the affected area Pt denies cold application to the affected area Ulnar aspect of 5th MCP is where pain is. ROS: A complete system ROS was performed and negative aside from the pertinent positives noted in the HPI and PE. 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 2 pt pinch intact Finklesteins neg Ab- and Adduction of fingers intact. Palpable tenderness and swelling over right 5th MCP joint. Extremities: no cyanosis Peripheral pulses: 2+ radial, 2+ ulnar, nail dustin intact Neurologic: sensory exam intact Psych: alert, oriented, cognitive function intact, cooperative with exam HPI and documentation approved and amended as necessary by Dr. Chemo Severino. Transcribed by Jewels nye LPN-IV 1. Right hand pain Prelim interp of right hand negative for acute changes. Results reviewed with patient. - XR hand 3+ views right 2. Capsulitis of hand Dx and tx reviewed with patient. Medication as directed. Push fluids. No NSAIDs while taking steroid.Aluminum foam splint applied in office. Ice . Follow up with PCP. - methylPREDNISolone (Medrol Dospak) 4 MG tablets; As directed Dispense: 21 tablet; Refill: 0 - Splint Application Associated Order(s): Splint Application Post-Procedure Diagnose(s): Capsulitis of hand Patient ID: Aislinn Nair is a 48 y.o. female. Splint Application Date/Time: 12/28/2023 5:12 PM Performed by: Linda Dowling MA Authorized by: Chemo Severino DO Consent: Consent obtained: Verbal [place] protocol: Patient identity confirmed: Verbally with patient Procedure details: Location: Finger Finger location: R small finger Cast type: Finger Splint type: Finger Supplies: Aluminum splint Post-procedure details: Procedure completion: Tolerated well, no immediate complications Comments: Alumafoam applied to pts right little finger. documented in this encounter [facility] 12-28-2023 Instructions Jewels Hudson RN - 12/28/2023 4:20 PM EST See progress note documented in this encounter [facility] Evaluation note Diagnosis Primary hypertension (CMS/HCC)- Primary Unspecified essential hypertension Dysuria [facility] Diagnosis Right hand pain- Primary Pain in soft tissues of limb Capsulitis of hand [facility] Diagnosis Hypertension, unspecified type (CMS/HCC) documented in this encounter [facility]* Diagnosis Mixed hyperlipidemia (CMS/HCC)- Primary Mixed hyperlipidemia Hypertension, unspecified type (CMS/HCC) documented in this encounter [facility]* Diagnosis Primary hypertension (CMS/HCC)- Primary Unspecified essential hypertension Dysuria Other fatigue- Primary Primary hypertension (CMS/HCC) Unspecified essential hypertension Stress Other psychological or physical stress, not elsewhere classified CHEMA (obstructive sleep apnea) Obstructive sleep apnea (adult) (pediatric) Mixed hyperlipidemia (CMS/HCC) Mixed hyperlipidemia Closed nondisplaced fracture of lateral malleolus of right fibula with routine healing- Primary Sprain of ligament of right ankle, subsequent encounter Closed nondisplaced fracture of lateral malleolus of right fibula with routine healing- Primary [facility] Diagnosis Primary hypertension (CMS/HCC)- Primary Unspecified essential hypertension Dysuria Other fatigue- Primary Primary hypertension (CMS/HCC) Unspecified essential hypertension Stress Other psychological or physical stress, not elsewhere classified CHEMA (obstructive sleep apnea) Obstructive sleep apnea (adult) (pediatric) Mixed hyperlipidemia (CMS/HCC) Mixed hyperlipidemia Closed nondisplaced fracture of lateral malleolus of right fibula with routine healing- Primary [facility] Diagnosis Primary hypertension (CMS/HCC)- Primary Unspecified essential hypertension Dysuria Other fatigue- Primary Primary hypertension (CMS/HCC) Unspecified essential hypertension Stress Other psychological or physical stress, not elsewhere classified CHEMA (obstructive sleep apnea) Obstructive sleep apnea (adult) (pediatric) Mixed hyperlipidemia (CMS/HCC) Mixed hyperlipidemia Closed nondisplaced fracture of lateral malleolus of right fibula with routine healing Closed nondisplaced fracture of lateral malleolus of right fibula with routine healing- Primary [facility] Diagnosis Primary hypertension (CMS/HCC)- Primary Unspecified essential hypertension Dysuria Other fatigue- Primary Primary hypertension (CMS/HCC) Unspecified essential hypertension Stress Other psychological or physical stress, not elsewhere classified CHEMA (obstructive sleep apnea) Obstructive sleep apnea (adult) (pediatric) Mixed hyperlipidemia (CMS/HCC) Mixed hyperlipidemia Closed nondisplaced fracture of lateral malleolus of right fibula with routine healing- Primary [facility] Diagnosis Primary hypertension (CMS/HCC)- Primary Unspecified essential hypertension Dysuria Other fatigue- Primary Primary hypertension (CMS/HCC) Unspecified essential hypertension Stress Other psychological or physical stress, not elsewhere classified CHEMA (obstructive sleep apnea) Obstructive sleep apnea (adult) (pediatric) Mixed hyperlipidemia (CMS/HCC) Mixed hyperlipidemia Closed nondisplaced fracture of lateral malleolus of right fibula with routine healing- Primary [facility] Diagnosis Primary hypertension (CMS/HCC)- Primary Unspecified essential hypertension Dysuria Other fatigue- Primary Primary hypertension ([facility]) Unspecified essential hypertension Stress Other psychological or physical stress, not elsewhere classified CHEMA (obstructive sleep apnea) Obstructive sleep apnea (adult) (pediatric) Mixed hyperlipidemia ([facility]) Mixed hyperlipidemia Closed nondisplaced fracture of lateral malleolus of right fibula with routine healing- Primary [facility] Diagnosis Vitamin D deficiency- Primary [facility]* Diagnosis Primary hypertension ([facility])- Primary Unspecified essential hypertension Dysuria Other fatigue- Primary Primary hypertension ([facility]) Unspecified essential hypertension Stress Other psychological or physical stress, not elsewhere classified CHEMA (obstructive sleep apnea) Obstructive sleep apnea (adult) (pediatric) Mixed hyperlipidemia ([facility]) Mixed hyperlipidemia Closed nondisplaced fracture of lateral malleolus of right fibula with routine healing- Primary [facility]* Diagnosis Hypertension, unspecified type ([facility]) Primary hypertension ([facility]) Unspecified essential hypertension Mixed hyperlipidemia ([facility]) Mixed hyperlipidemia ASCVD (arteriosclerotic cardiovascular disease) ([facility]) Unspecified cardiovascular disease documented [facility] this [facility]* Diagnosis Right ankle pain, unspecified chronicity- Primary Sprain of right ankle, unspecified ligament, initial encounter Nondisplaced fracture of lateral malleolus of right fibula, initial encounter for closed fracture documented [facility] this [facility]* Diagnosis Sprain of ligament of right ankle, subsequent encounter- Primary Closed nondisplaced fracture of lateral malleolus of right fibula with routine healing documented [facility]* Diagnosis Primary hypertension ([facility]/HCC)- Primary Unspecified essential hypertension Dysuria Other fatigue- Primary Primary hypertension ([facility]) Unspecified essential hypertension Stress Other psychological or physical stress, not elsewhere classified CHEMA (obstructive sleep apnea) Obstructive sleep apnea (adult) (pediatric) Mixed hyperlipidemia ([facility]) Mixed hyperlipidemia Closed nondisplaced fracture of lateral malleolus of right fibula with routine healing- Primary Sprain of ligament of right ankle, subsequent encounter- Primary Closed nondisplaced fracture of lateral malleolus of right fibula with routine healing documented [facility] Diagnosis Primary hypertension (CMS/HCC)- Primary Unspecified essential hypertension Dysuria Other fatigue- Primary Primary hypertension (CMS/HCC) Unspecified essential hypertension Stress Other psychological or physical stress, not elsewhere classified CHEMA (obstructive sleep apnea) Obstructive sleep apnea (adult) (pediatric) Mixed hyperlipidemia (CMS/HCC) Mixed hyperlipidemia Closed nondisplaced fracture of lateral malleolus of right fibula with routine healing- Primary Sprain of ligament of right ankle, subsequent encounter- Primary Closed nondisplaced fracture of lateral malleolus of right fibula with routine healing documented [facility] Diagnosis Primary hypertension (CMS/HCC)- Primary Unspecified essential hypertension Dysuria Other fatigue- Primary Primary hypertension (CMS/HCC) Unspecified essential hypertension Stress Other psychological or physical stress, not elsewhere classified CHEMA (obstructive sleep apnea) Obstructive sleep apnea (adult) (pediatric) Mixed hyperlipidemia (CMS/HCC) Mixed hyperlipidemia Sprain of ligament of right ankle, subsequent encounter- Primary Closed nondisplaced fracture of lateral malleolus of right fibula with routine healing [facility] N[facility]* Consultation (Routine) - Authorized Specialty Diagnoses / Procedures Referred By Killian esqueda Referred To Contact Physical Therapy Diagnoses Closed nondisplaced fracture of lateral malleolus of right fibula with routine healing Procedures [place] OFFICE[facility]OUTPATIENT [facility] Kacey Johns, SLIDE DEVELOPER [address] [facility] [address] [place] [address] Phone: tel: fax: Ashtyn Randall, PT [address] [facility] [address] [place] [address] Phone: tel: fax: Referral ID Status Reason Start Date Expiration Date Visits Requested Visits Authorized [id number] Authorized Consult and Treat 10/22/2024 04/20/2025 40 40 [facility] for visit Narrative* Consultation (Routine) - Authorized Specialty Diagnoses / Procedures Referred By Killian esqueda Referred To Contact Physical Therapy Diagnoses Closed nondisplaced fracture of lateral malleolus of right fibula with routine healing Procedures [place] OFFICE[facility]PAT[facility] Kacey Johns, SLIDE DEVELOPER [address] [facility] [address] [place] [address] Phone: tel: fax: Ashtyn Randall, PT [address] [facility] [address] [place] [address] Phone: tel: fax: Referral ID Status Reason Start Date Expiration Date Visits Requested Visits Authorized [id number] Authorized Consult and Treat 10/22/2024 11/20/2024 40 40 [facility] N[facility]* Consultation (Routine) - Closed Specialty Diagnoses / Procedures Referred By Killian esqueda Referred To Contact Physical Therapy Diagnoses Closed nondisplaced fracture of lateral malleolus of right fibula with routine healing Procedures [place] OFFICE/OUTPATIENT [facility] Kacey Johns, SLIDE DEVELOPER [address] [facility] [address] [place] [address] Phone: tel: fax: Ashtyn Randall, PT [address] [facility] [address] [place] [address] Phone: tel: fax: Referral ID Status Reason Start Date Expiration Date V isits Requested Visits Authorized [id number] Closed Consult and Treat 10/22/2024 11/20/2024 40 40 [facility] Narrative* Consultation (Routine) - Authorized Specialty Diagnoses / Procedures Referred By Killian esqueda Referred To Contact Physical Therapy Diagnoses Closed nondisplaced fracture of lateral malleolus of right fibula with routine healing Procedures PHYS/OCC THERAPY SS [place] THERAPEUTIC PX 1/> AREAS EACH 15 MIN EXERCISES [place] THER PX 1/> AREAS EACH 15 MIN NEUROMUSC REEDUCA [place] MANUAL THERAPY TQS 1/> REGIONS EACH 15 MINUTES Kacey Johns, SLIDE DEVELOPER [address] [facility] [address] [place] [address] Phone: tel: fax: Ashtyn Randall, PT [address] [facility] [address] [place] [address] Phone: tel: fax: Referral ID Status Reason Start Date Expiration Date Visits Requested Visits Authorized [id number] Authorized Consult and Treat 11/23/2024 12/20/2024 34 3 [facility] Narrative* Consultation (Routine) - Authorized Specialty Diagnoses / Procedures Referred By Contjose t Referred To Contact Physical Therapy Diagnoses Closed nondisplaced fracture of lateral malleolus of right fibula with routine healing Procedures PHYS/OCC THERAPY SS [place] THERAPEUTIC PX 1/> AREAS EACH 15 MIN EXERCISES [place] THER PX 1/> AREAS EACH 15 MIN NEUROMUSC REEDUCA [place] MANUAL THERAPY TQS 1/> REGIONS EACH 15 MINUTES Kacey Johns, SLIDE DEVELOPER [address] [facility] [address] [place] [address] Phone: tel: fax: Ashtyn Randall, PT [address] [facility] [address] [place] [address] Phone: tel: fax: Referral ID Status Reason Start Date Expiration Date Visits Requested Visits Authorized [id number] Authorized Consult and Treat 11/23/2024 11/20/2025 34 3 [facility] Narrative* Consultation (Routine) - Authorized Specialty Diagnoses / Procedures Referred By Killian t Referred To Contact Physical Therapy Diagnoses Closed nondisplaced fracture of lateral malleolus of right fibula with routine healing Procedures PHYS/OCC THERAPY SS [place] THERAPEUTIC PX 1/> AREAS EACH 15 MIN EXERCISES [place] THER PX 1/> AREAS EACH 15 MIN NEUROMUSC REEDUCA [place] MANUAL THERAPY TQS 1/> REGIONS EACH 15 MINUTES Kacey Johns, SLIDE DEVELOPER [address] [facility] [address] [place] [address] Phone: tel: fax: Ashtyn Randall, PT [address] [facility] [address] [place] [address] Phone: tel: fax: Referral ID Status Reason Start Date Expiration Date Visits Requested Visits Authorized [id number] Authorized Consult and Treat 11/23/2024 11/20/2025 34 40 [facility] Summary Purpose Family History No Family History Records FoundNo Family History Records FoundNo Family History Records FoundNo Family History Records FoundNo Family History Records FoundNo Family History Records Found Advance Directives No Advanced Directives Records FoundNo Advanced Directives Records FoundNo Advanced Directives Records FoundNo Advanced Directives Records FoundNo Advanced Directives Records FoundNo Advanced Directives Records Found Additional Source Comments INFORMATION SOURCE (unrecogn ized section and content) DATE CREATED AUTHOR 01/12/2022 [facility] DATE CREATED AUTHOR AUTHOR'S ORGANIZ ATION 10/03/2022 [facility] DATE CREATED AUTHOR AUTHOR'S ORGANIZ ATION 10/04/2022 [facility] dical Specialist DATE CREATED AUTHOR AUTHOR'S ORGANIZ ATION 07/13/2024 [facility] DATE CREATED AUTHOR AUTHOR'S ORGANIZ ATION 07/27/2024 [facility] DATE CREATED AUTHOR AUTHOR'S ORGANIZ ATION 12/09/2024 [facility] dical Specialists EPIC Reason for Visit (unrecogniz ed section and content) Reason Comments Hypertension Reason Comments Hypertension 2 week follow up Reason Comments Follow-up Reason Comments Fracture Reason Comments Follow-up Reason Onset Date Comments Med Refill 07/27/2024 Care Teams (unrecognized sec tion and content) Work Car Operator Relationship Specialty Start Date End Date Sabiha Horner MD [address] [place] [address] PCP - General Family Medicine 05/20/23 Tori Edouard NP [address] [facility] [place] [address] PCP - Medical [place] [employer] 04/21/23 Tori Edouard NP [address] [facility] [place] [address] Nurse Practitioner Family Medicine 05/20/23 Work Car Operator Relationship Specialty Start Date End Date Sabiha Horner MD [address] [facility] [place] [address] PCP - General Family Medicine 05/20/23 Tori Edouard NP [address] [facility] [place] [address] PCP - Medical [place] [employer] 04/21/23 Tori Edouard NP [address] [place] [address] Nurse Practitioner Family Medicine 05/20/23 Work Car Operator Relationship Specialty Start Date End Date Sabiha Horner MD [address] [place] [address] PCP - General Family Medicine 05/20/23 Tori Edouard NP [address] [place] [address] PCP - Medical [place] [employer] 04/21/23 Tori Edouard NP [address] [place] [address] Nurse Practitioner Family Medicine 05/20/23 Work Car Operator Relationship Specialty Start Date End Date Sabiha Horner MD [address] [place] [address] PCP - General Family Medicine 05/20/23 Tori Edouard NP [address] [place] [address] PCP - Medical [place] [employer] 04/21/23 Tori Edouard NP [address] [place] [address] Nurse Practitioner Family Medicine 05/20/23 Work Car Operator Relationship Specialty Start Date End Date Sabiha Horner MD [address] [place] [address] PCP - General Family Medicine 05/20/23 Sabiha Horner MD [address] [place] [address] PCP - Medical [place] [employer] 10/21/13 11/20/99 Tori Edouard NP [address] [place] [address] Nurse Practitioner Family Medicine 05/20/23 Johnnie Vyas, TEST PREPARATION TUTOR [address] [address] Licensed Practical Nurse Family Medicine 08/01/24 Work Car Operator Relationship Specialty Start Date End Date Sabiha Horner MD [address] [place] [address] PCP - General Family Medicine 05/20/23 Sabiha Horner MD [address] [place] [address] PCP - Medical [place] [employer] 10/21/13 11/20/99 Tori Edouard NP [address] [place] [address] Nurse Practitioner Family Medicine 05/20/23 Johnnie Vyas, TEST PREPARATION TUTOR [address] [address] Licensed Practical Nurse Family Medicine 08/01/24 Work Car Operator Relationship Specialty Start Date End Date Sabiha Horner MD [address] [place] [address] PCP - General Family Medicine 05/20/23 Sabiha Horner MD [address] [place] [address] PCP - Medical [place] [employer] 10/21/13 11/20/99 Tori Edouard NP [address] [place] [address] Nurse Practitioner Family Medicine 05/20/23 Johnnie Vyas, TEST PREPARATION TUTOR [address] [place] [address], [place] [address] Licensed Practical Nurse Family Medicine 08/01/24 Work Car Operator Relationship Specialty Start Date End Date Sabiha Horner MD [address] [facility] [place] [address] PCP - General Family Medicine 05/20/23 Sabiha Horner MD [address] [facility] [place] [address] PCP - Medical [place] [employer] 10/21/13 11/20/99 Tori Edouard NP [address] [facility] [place] [address] Nurse Practitioner Family Medicine 05/20/23 Johnnie Vyas, TEST PREPARATION TUTOR [address] [place] [address], [place] [address] Licensed Practical Nurse Family Medicine 08/01/24 Work Car Operator Relationship Specialty Start Date End Date Sabiha Horner MD [address] [facility] [place] [address] PCP - General Family Medicine 05/20/23 Chemo Severino DO [address] [place] [address] PCP - Medical [place] [employer] 10/21/13 11/20/99 Tori Edouard NP [address] [facility] [place] [address] Nurse Practitioner Family Medicine 05/20/23 Johnnie Vyas, TEST PREPARATION TUTOR [address] [address] Licensed Practical Nurse Family Medicine 08/01/24 Work Car Operator Relationship Specialty Start Date End Date Sabiha Horner MD [address] [place] [address] PCP - General Family Medicine 05/20/23 Chemo Severino DO [address] [place] [address] [place] [address] PCP - Medical [place] Commercial 10/21/13 11/20/99 Tori Edouard NP [address] [place] [address] Nurse Practitioner Family Medicine 05/20/23 Johnnie Vyas, [facility] [address] [address] Licensed Practical Nurse Family Medicine 08/01/24 Work Car Operator Relationship Specialty Start Date End Date Sabiha Horner MD [address] [place] [address] PCP - General Family Medicine 05/20/23 Chemo Severino DO [address] [facility] [address] [address] PCP - Medical [place] Commercial 10/21/13 11/20/99 Tori Edouard NP [address] [place] [address] Nurse Practitioner Family Medicine 05/20/23 Johnnie Vyas, [employer] [address] [place] [address] Licensed Practical Nurse Family Medicine 08/01/24 Work Car Operator Relationship Specialty Start Date End Date Sabiha Horner MD [address] [place] [address] PCP - General Family Medicine 05/20/23 Chemo Severino DO [address] [place] [address] [place] [address] PCP - Medical [place] Commercial 10/21/13 11/20/99 Tori Edouard NP [address] [place] [address] Nurse Practitioner Family Medicine 05/20/23 Johnnie Vyas, [employer] PREPAR[employer] TUTOR [address] [place] [address] Licensed Practical Nurse Family Medicine 08/01/24 Work Car Operator Relationship Specialty Start Date End Date Sabiha Horner MD [address] [place] [address] PCP - General Family Medicine 05/20/23 Chemo Severino DO [address] [place] [address] [place] [address] PCP - Medical [place] Commercial 10/21/13 11/20/99 Tori Edouard NP [address] [place] [address] Nurse Practitioner Family Medicine 05/20/23 Johnnie Vyas, [employer] PRE[employer] T[employer]OR [address] [address] Licensed Practical Nurse Family Medicine 08/01/24 Work Car Operator Relationship Specialty Start Date End Date Sabiha Horner MD [address] [place] [address] PCP - General Family Medicine 05/20/23 Chemo Severino DO [address] [facility] [address] [place] [address] PCP - Medical [place] Commercial 10/21/13 11/20/99 Tori Edouard NP [address] [place] [address] Nurse Practitioner Family Medicine 05/20/23 Johnnie Vyas [facility] [address] [address] Licensed Practical Nurse Family Medicine 08/01/24 Work Car Operator Relationship Specialty Start Date End Date Sabiha Horner MD [address] [place] [address] PCP - General Family Medicine 05/20/23 Chemo Severino DO [address] [place] [address] PCP - Medical [place] Commercial 10/21/13 11/20/99 Tori Edouard NP [address] [place] [address] Nurse Practitioner Family Medicine 05/20/23 Johnnie Vyas [facility] [address] [address] Licensed Practical Nurse Family Medicine 08/01/24 Work Car Operator Relationship Specialty Start Date End Date Sabiha Horner MD [address] [facility] [place] [address] PCP - General Family Medicine 05/20/23 Sabiha Horner MD [address] [facility] [place] [address] PCP - Medical [place] Commercial 10/21/13 11/20/99 Tori Edouard NP [address] [place] [address] Nurse Practitioner Family Medicine 05/20/23 Johnnie Vyas, TEST PREPARATION TUTOR [address] [place] [address] Licensed Practical Nurse Family Medicine 08/01/24 Work Car Operator Relationship Specialty Start Date End Date Sabiha Horner MD [address] [facility] [place] [address] PCP - General Family Medicine 05/20/23 Chemo Severino DO [address] [address] PCP - Medical [place] Commercial 10/21/13 11/20/99 Tori Edouard NP [address] [place] [address] Nurse Practitioner Family Medicine 05/20/23 Johnnie Vyas, TEST PREPARATION TUTOR [address] [place] [address] Licensed Practical Nurse Family Medicine 08/01/24 Work Car Operator Relationship Specialty Start Date End Date Sbaiha Horner MD [address] [facility] [place] [address] PCP - General Family Medicine 05/20/23 Chemo Severino DO [address] [facility] [place] [address] PCP - Medical [place] Commercial 10/21/13 11/20/99 Tori Edouard NP [address] [place] [address] Nurse Practitioner Family Medicine 05/20/23 Johnnie Vyas, SHELLEY [address] [facility] [address] [place] [address] Licensed Practical Nurse Family Medicine 08/01/24 Work Car Operator Relationship Specialty Start Date End Date Sabiha Horner MD [address] [place] [address] PCP - General Family Medicine 05/20/23 Sabiha Horner MD [address] [place] [address] PCP - Medical [place] Commercial 10/21/13 11/20/99 Tori Edouard NP [address] [place] [address] Nurse Practitioner Family Medicine 05/20/23 Work Car Operator Relationship Specialty Start Date End Date Sabiha Horner MD [address] [facility] [place] [address] PCP - General Family Medicine 05/20/23 Sabiha Horner MD [address] [place] [address] PCP - Medical [place] Commercial 10/21/13 11/20/99 Tori Edouard NP [address] [facility] [place] [address] Nurse Practitioner Family Medicine 05/20/23 Work Car Operator Relationship Specialty Start Date End Date Sabiha Horner MD [address] [facility] [place] [address] PCP - General Family Medicine 05/20/23 Sabiha Horner MD [address] [facility] [place] [address] PCP - Medical [place] Commercial 10/21/13 11/20/99 Tori Edouard NP [address] [facility] [place] [address] Nurse Practitioner Family Medicine 05/20/23 Work Car Operator Relationship Specialty Start Date End Date Sabiha Horner MD [address] [facility] [place] [address] PCP - General Family Medicine 05/20/23 Sabiha Horner MD [address] [facility] [place] [address] PCP - Medical [place] Commercial 10/21/13 11/20/99 Tori Edouard NP [address] [facility] [place] [address] Nurse Practitioner Family Medicine 05/20/23 Johnnie Vyas, TEST PREPARATION TUTOR [address] [address] [facility] [address] [place] [address], [place] [address] Licensed Practical Nurse Family Medicine 08/01/24 Work Car Operator Relationship Specialty Start Date End Date Sabiha Horner MD [address] [place] [address] PCP - General Family Medicine 05/20/23 Sabiha Horner MD [address] [place] [address] PCP - Medical [place] Commercial 10/21/13 11/20/99 Tori Edouard, GABRIEL [address] [place] [address] Nurse Practitioner Family Medicine 05/20/23 Johnnie Vyas, TEST PREPARATION TUTOR [address] [place] [address] Licensed Practical Nurse Family Medicine 08/01/24 Work Car Operator Relationship Specialty Start Date End Date Sabiha Horner MD [address] [place] [address] PCP - General Family Medicine 05/20/23 Chemo Severino DO [address] [facility] [address] [address] PCP - Medical [place] Commercial 10/21/13 11/20/99 Tori Edouard NP [address] [facility] [address] Nurse Practitioner Family Medicine 05/20/23 Johnnie Vyas, TEST PREPARATION TUTOR [address] [place] [address] Licensed Practical Nurse Family Medicine 08/01/24 Work Car Operator Relationship Specialty Start Date End Date Sabiha Horner MD [address] [place], [place] [id number] PCP - General Family Medicine 05/20/23 Chemo Severino DO [address] [place] [address] PCP - Medical [place] Commercial 10/21/13 11/20/99 Tori Edouard NP [address] [place], [place] [id number] Nurse Practitioner Family Medicine 05/20/23 Johnnie Vyas LPN [address] [facility] [address] [place] [id number] Licensed Practical Nurse Family Medicine 08/01/24 FOR RECORDS PERTAINING TO PATIENTS WHO ARE OR HAVE BEEN ENROLLED IN A CHEMICAL DEPENDENCY/SUBSTANCEABUSE PROGRAM, SOME INFORMATION MAY BE OMITTED. This clinical summary was aggregated from multiple sources. Caution should be exercised in using it in the provision of clinical care. This summary normalizes information from multiple sources, and as a consequence, information in this document may materially change the coding, format and clinical context of patient data. In addition, data may be omitted in some cases. CLINICAL DECISIONS SHOULD BE BASED ON THE PRIMARY CLINICAL RECORDS. [facility]. provides no warranty or guarantee of the accuracy or completeness of information in this document.
[2024-12-10] MEDS: DEXAMETHASONE SOD PHOS 10 MG/ML VIAL IM (22:37)
[2024-12-10] MEDS: ORPHENADRINE 60 MG/ 2 ML VIAL IM (22:38)
[2024-12-10] MEDS: KETOROLAC TROMETHAMINE 30 MG/ML VIAL IM (22:38)
--- NOTE | 2024-12-10 22:44 | ED_ITS ---
HPI HPI - General Adult General Chief complaint: Extremity Injury, Lower Stated complaint: HIP PAIN Time Seen by Provider: 12/10/24 22:09 Source: patient Mode of arrival: walk-in Limitations: no limitations History of Present Illness HPI narrative: Patient presents with a chief complaint of pain in her left hip. She has had this for the last 3 days. Pain is worse when she lies down. 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 She denies any recent injury. She denies any numbness in the leg. No back pain is reported. Pain has been more continuous since 1 PM today no urinary symptoms are reported and she denies body aches, chills or fever. She is treated for hypertension. Related Data Home Medications ?Medication ?Instructions ?Recorded ?Confirmed carvedilol 12.5 mg tablet 12.5 mg PO Q12H 07/29/24 07/29/24 cetirizine 10 mg tablet (24Hour 10 mg PO DAILY 07/29/24 07/29/24 Allergy) ergocalciferol (vitamin D2) 1,250 1,250 mcg PO .WEEKLY 07/29/24 07/29/24 mcg (50,000 unit) capsule fluticasone propionate 50 1 spray intranasal DAILY 07/29/24 07/29/24 mcg/actuation nasal spray,suspension lisinopril 20 mg tablet mg 07/29/24 lisinopril 40 mg tablet 40 mg PO DAILY 07/29/24 07/29/24 meloxicam 15 mg tablet 15 mg PO DAILY 07/29/24 07/29/24 rosuvastatin 10 mg tablet 10 mg PO DAILY 07/29/24 07/29/24 Previous Rx's ?Medication ?Instructions ?Recorded hydrocodone 5 mg-acetaminophen 325 1 tab PO Q6H PRN pain 3 days #12 12/10/24 mg tablet tabs methocarbamol 750 mg tablet 750 mg PO TID #20 tabs 12/10/24 prednisone 20 mg tablet 40 mg (2 x 20 mg) PO DAILY 5 days 12/10/24 #10 tabs Allergies Allergy/AdvReac Type Severity Reaction Status Date / Time ciprofloxacin (From Cipro) AdvReac Nausea Verified 12/10/24 22:10 Opioid HPI Opioid Management Most Recent Opioid Data: Last Pain Scale 7 07/29/24 02:23 07/29/24 PFSH PFSH Social History Little interest or pleasure in doing things: not at all Feeling down, depressed, or hopeless: not at all Exam Narrative Exam Narrative: Obese in appearance and in discomfort due to her pain. Blood pressure is elevated at 175/104. The right side of her vitals are stable. There is no midline lumbar spine tenderness. She localizes tenderness in the left gluteal region but not over the greater trochanter of the left hip. Straight leg raising is accompanied with pain with near complete flexion of the hip. Lateral rotation of the left leg also worsens her pain. Tone and power are normal and symmetric in the lower extremities. HEENT exam is normal to inspection. Lungs are clear to auscultation. Heart has regular rate and rhythm. Abdomen is soft and benign. Constitutional Vital Signs, click to edit/add: Last Vital Signs Temp 97.9 F 12/10/24 22:10 Pulse 85 12/10/24 23:43 Resp 16 12/10/24 23:43 BP 140/90 12/10/24 23:43 Pulse Ox 97 12/10/24 23:43 O2 Del Method Room Air 12/10/24 23:43 Course Vital Signs Vital signs: Vital Signs Temperature 97.9 F 12/10/24 22:10 Pulse Rate 89 12/10/24 22:10 Respiratory Rate 16 12/10/24 22:10 Blood Pressure 175/104 H 12/10/24 22:10 Pulse Oximetry 95 12/10/24 22:10 Oxygen Delivery Method Room Air 12/10/24 22:10 Temperature 97.9 F 12/10/24 22:10 Pulse Rate 85 12/10/24 23:43 Respiratory Rate 16 12/10/24 23:43 Blood Pressure 140/90 12/10/24 23:43 Pulse Oximetry 97 12/10/24 23:43 Oxygen Delivery Method Room Air 12/10/24 23:43 Medical Decision Making MDM Narrative Medical decision making narrative: Baseline blood work is obtained which shows some degree of renal insufficiency. CBC is normal. Creatinine is elevated at 1.23 with a BUN of 22. No old labs are available for comparison in the system. The blood glucose is 129. Patient takes her meloxicam regularly for arthritis in her knees and back. I have advised her to stop taking meloxicam since it could be affecting her kidney function also although it has some renal sparing value. Pain medications administered in the ED have started to work and she is noticed some relief. She was also given Decadron 10 mg IM. Upon discharge I am placing her on prednisone 40 mg daily for 5 days, Robaxin and [place]. She is to contact the PCP to arrange physical therapy and outpatient workup and to monitor her kidney function. Lab Data Labs: Lab Results 12/10/24 Range/Units 22:30 WBC 8.1 (4.0-11.0) 10^3/uL RBC 5.06 (4.20-5.40) 10^6/uL Hgb 15.4 (12.0-16.0) g/dL Hct 45.6 (36.0-48.0) % MCV 90.1 (81.0-99.0) fL MCH 30.4 (26.7-34.0) pg MCHC 33.8 (29.9-35.2) g/dL RDW 12.1 (11.0-15.0) % Plt Count 255 (150-450) 10^3/uL MPV 10.4 (9.5-13.5) fL Neut % (Auto) 66.8 (43.0-75.0) % Lymph % (Auto) 23.4 (20.5-60.0) % Brooke % (Auto) 6.7 (1.7-12.0) % Eos % (Auto) 2.6 (0.9-7.0) % Baso % (Auto) 0.4 (0.2-2.0) % Neut # (Auto) 5.4 (1.4-6.5) 10^3/uL Lymph # (Auto) 1.9 (1.2-3.8) 10^3/uL Brooke # (Auto) 0.5 (0.3-0.8) 10^3/uL Eos # (Auto) 0.2 (0.0-0.7) 10^3/uL Baso # (Auto) 0.0 (0.0-0.1) 10^3/uL Abs Immat Gran (auto) 0.01 (0.00-0.03) 10^3/uL Imm/Tot Granulo (auto) 0.1 (0.0-0.5) % Sodium 144 (136-145) mmol/L Potassium 4.1 (3.5-5.1) mmol/L Chloride 107 (98-107) mmol/L Carbon Dioxide 27.3 (21.0-32.0) mmol/L Anion Gap 13.8 BUN 22.0 H (7.0-18.0) mg/dL Creatinine 1.23 H (0.55-1.02) mg/dL Est GFR ( Amer) 56 L (>=60 mL/min/1.73m^2) Est GFR (Non-Af Amer) 46 L (>=60 mL/min/1.73m^2) BUN/Creatinine Ratio 17.9 Glucose 129 H (74-106) mg/dL Calcium 8.5 (8.5-10.1) mg/dL Total Bilirubin 0.4 (0.2-1.0) mg/dL AST 14 L (15-37) U/L ALT 28 (14-59) U/L Alkaline Phosphatase 132 H (46-116) U/L Total Protein 7.1 (6.4-8.2) g/dL Albumin 3.7 (3.4-5.0) g/dL Globulin 3.4 g/dL Albumin/Globulin Ratio 1.1 Discharge Plan Discharge Chief Complaint: Extremity Injury, Lower Clinical Impression: Acute lumbar radiculopathy, Renal insufficiency Patient Disposition: Home, Self-Care Time of Disposition Decision: 23:28 Condition: Fair Mode of Transportation: Private Vehicle Prescriptions / Home Meds: New hydrocodone-acetaminophen 5-325 mg tablet 1 tab PO Q6H PRN (Reason: pain) 3 Days Qty: 12 0RF prednisone 20 mg tablet 40 mg PO DAILY 5 Days Qty: 10 0RF methocarbamol 750 mg tablet 750 mg PO TID Qty: 20 0RF No Action carvedilol 12.5 mg tablet 12.5 mg PO Q12H ergocalciferol (vitamin D2) 1,250 mcg (50,000 unit) capsule 1,250 mcg PO .WEEKLY fluticasone propionate 50 mcg/actuation spray,suspension 1 spray INTRANASAL DAILY lisinopril 20 mg tablet lisinopril 40 mg tablet 40 mg PO DAILY meloxicam 15 mg tablet 15 mg PO DAILY rosuvastatin 10 mg tablet 10 mg PO DAILY cetirizine [24Hour Allergy] 10 mg tablet 10 mg PO DAILY Print Language: Stateless Instructions: Lumbar Radiculopathy (ED) Additional Instructions: Stop taking Meloxicam since you have the start of renal insufficiency. Other meds as prescribed. Contact your PCP for early follow up and to arrange physical therapy. Ask your PCP to start monitoring your kidney function. Referrals: Physician,Non-Staff, [Physician] - 1 week Discharge Date/Time: 12/10/24 23:46
--- NOTE | 2024-12-10 22:51 | PC.NURSE ---
pt ambulates around room bc this makes the pain better. medicated for pain
[2024-12-10 22:52] LABS: Basophils Percent Auto 0.4 % (0.2-2.0); Eosinophils Absolute Auto 0.2 10^3/uL (0.0-0.7); Eosinophils Percent Auto 2.6 % (0.9-7.0); Hematocrit 45.6 % (36.0-48.0); Hemoglobin 15.4 g/dL (12.0-16.0); Immature Granulocytes Abs Auto 0.01 10^3/uL (0.00-0.03); Immature Granulocytes Pct Auto 0.1 % (0.0-0.5); Lymphocytes Absolute Auto 1.9 10^3/uL (1.2-3.8); Lymphocytes Percent Auto 23.4 % (20.5-60.0); Mean Corpuscular HGB Conc 33.8 g/dL (29.9-35.2); Mean Corpuscular Hemoglobin 30.4 pg (26.7-34.0); Mean Corpuscular Volume 90.1 fL (81.0-99.0); Mean Platelet Volume 10.4 fL (9.5-13.5); Monocytes Absolute Auto 0.5 10^3/uL (0.3-0.8); Monocytes Percent Auto 6.7 % (1.7-12.0); Neutrophils Absolute Auto 5.4 10^3/uL (1.4-6.5); Neutrophils Percent Auto 66.8 % (43.0-75.0); Platelet Count 255 10^3/uL (150-450); Red Blood Count 5.06 10^6/uL (4.20-5.40); Red Cell Distribution Width 12.1 % (11.0-15.0); White Blood Count 8.1 10^3/uL (4.0-11.0)
[2024-12-10 23:11] LABS: Alanine Aminotransferase 28 U/L (14-59); Albumin Globulin Ratio 1.1; Albumin Level 3.7 g/dL (3.4-5.0); Alkaline Phosphatase 132 U/L (46-116); Anion Gap 13.8; Aspartate Amino Transferase 14 U/L (15-37); BUN Creatinine Ratio 17.9; Bilirubin Total 0.4 mg/dL (0.2-1.0); Calcium 8.5 mg/dL (8.5-10.1); Carbon Dioxide 27.3 mmol/L (21.0-32.0); Chloride 107 mmol/L (98-107); Estimated GFR (African America 56 (>=60 mL/min/1.73m^2); Estimated GFR (Non-African Ame 46 (>=60 mL/min/1.73m^2); Globulin 3.4 g/dL; Glucose 129 mg/dL (74-106); Potassium 4.1 mmol/L (3.5-5.1); Sodium 144 mmol/L (136-145); Total Protein 7.1 g/dL (6.4-8.2)
[2024-12-10 23:17] VITALS: BP 153/90; PULSE 77; O2SAT 94
[2024-12-10 23:43] VITALS: BP 140/90; PULSE 85; O2SAT 97
== END 2024-12-10 23:46 | disposition home or self-care (01) ==
PROVIDERS: Emergency Provider Emergency Medicine; PCP Family Medicine
DX: M54.16 Radiculopathy, lumbar region (principal); N28.9 Disorder of kidney and ureter, unspecified; I10 Essential (primary) hypertension
CPT/HCPCS: 36415; 80053; 85025; 96372; 99284; J1100; J1885; J2360